=== PATIENT | male | born 1965 | race Caucasian/White ===

== ENCOUNTER → 2024-07-12 09:42 | Outpatient (BNVA) | payer MEDICARE, SELFPAY | DX: E03.9 Hypothyroidism, unspecified (principal); Z12.5 Encounter for screening for malignant neoplasm of prostate; R35.1 Nocturia; E11.9 Type 2 diabetes mellitus without complications | CPT/HCPCS: 80053; 80061; 83036; 84439; 84443; 84481; 85025; G0103 ==

== ENCOUNTER 2024-08-07 15:53 | Emergency (ER) | payer MEDICARE, SELFPAY ==
[2024-08-07 15:56] VITALS: BP 101/57; PULSE 73; RESP 17; TEMP 37.2; O2SAT 97; BMI 31.3
--- NOTE | 2024-08-07 16:04 | W.ED.GENADLT ---
Documented by User: LOI Hirsch 08/07/24 16:53 HPI - General Adult General: Chief complaint: Fall Stated complaint: Fall, Heat, Muscle spasms Time Seen by Provider: 08/07/24 15:55 Source: patient and EMS Mode of arrival: EMS Limitations: no limitations History of Present Illness: Patient is 58-year-old male presents to ED today via EMS for medical evaluation. Patient states he walked home from [facility] (currently resides at the [facility]) so this is a several mile walk and states when he got home he felt weak and fell to the ground and was not able to get himself up thus prompting the call to EMS. He denies lightheadedness, dizziness, passing out. Denies chest pain or shortness of breath. It is rather warm outside and patient is wearing triple layer black ski pants. Upon arrival, patient has no physical complaints other than he feels warm. He states he urinated when he got home and does not feel like it was dark. EMS states he was hypotensive when they arrived. Blood pressure at time of my examination is 101/57. Blood glucose is 65. Onset (ago): hour(s) Severity: mild Relieving factors: rest Exacerbating factors: other (heat) Associated symptoms: Reports no associated symptoms; Deny chest pain, confusion, dyspnea, headache(s), rash, palpitations or syncope Treatments prior to arrival: none Related Data Previous Rx's ?Medication ?Instructions ?Recorded atorvastatin 40 mg tablet (Lipitor) 40 mg PO DAILY #90 tabs 07/12/24 baclofen 20 mg tablet 20 mg PO TID #90 tabs 07/12/24 duloxetine 60 mg capsule,delayed 60 mg PO DAILY #90 caps 07/12/24 release gabapentin 300 mg capsule 300 mg PO TID #270 caps 07/12/24 levetiracetam 750 mg tablet 750 mg PO BID #180 tabs 07/12/24 levothyroxine 75 mcg capsule 75 mcg PO DAILY #90 caps 07/12/24 potassium chloride 10 mEq 10 meq PO DAILY #90 tabs 07/12/24 tablet,extended release(part/cryst) (Klor-Con M) topiramate 200 mg tablet 200 mg PO BID #180 tabs 07/12/24 Allergies Allergy/AdvReac Type Severity Reaction Status Date / Time aspirin Allergy Intermediate swelling Verified 07/12/24 08:51 ibuprofen Allergy Intermediate swelling Verified 07/12/24 08:51 ketorolac (From Toradol) Allergy Intermediate swelling Verified 07/12/24 08:51 Review of Systems Const: Reports: other (weakness-improving); Denies: fever(s), chills, body aches, change in appetite or fatigue Eyes: Denies: change in vision or blurry vision Card: Denies: chest pain, palpitations, edema, lightheadedness, syncope, pre-syncope or dyspnea on exertion Resp: Denies: dyspnea GI: Denies: abdominal pain : Denies: flank pain or dysuria Musc: Denies: neck pain, back pain, extremity pain or joint swelling Skin/Breast: Denies: rash Neuro: Denies: headache(s), numbness in extremities, weakness in extremities, sensory changes, lack of coordination, dizziness or confusion PFSH ED PFSH: Medical History Nocturia Chronic back pain Diabetic neuropathy Hypothyroidism Epilepsy Hyperlipidemia Type 2 diabetes mellitus Cataract Surgical History History of lobectomy of lung History of bilateral knee replacement S/P placement of nerve stimulator Family History Mother Diabetes Sister Cancer Diabetes Social History Smoking and tobacco/nicotine status: former use of tobacco/nicotine Alcohol intake: never Substance/Drug Use: never Household members: spouse Housing: Other Marital status: Number of children: 0 service: No Current occupational status: disabled Pets and animals: Yes Physical Exam Const: COMMON NORMALS: no acute distress, average body habitus, patient oriented x3, no limitations, healthy appearing, alert and well nourished GENERAL APPEARANCE: cooperative ORIENTATION/CONSCIOUSNESS: Yes awake, Yes oriented to person, Yes oriented to place and Yes oriented to time HENMT: COMMON NORMALS: normocephalic and atraumatic HEAD & SCALP: normal to inspection, normocephalic and atraumatic FACE & SINUS: normal facial exam and face symmetric Eye: GENERAL EYE: appearance normal, both eyes and all related structures and normal light reflex DIRECT OPHTHALMOSCOPY: Yes normal light reflex Resp: COMMON NORMALS: normal respiratory effort and clear to auscultation bilaterally AUSCULTATION: clear to auscultation bilaterally Cardio: COMMON NORMALS: regular rate and regular rhythm RATE: regular rate RHYTHM: regular rhythm GI: COMMON NORMALS: Normal to inspection, nondistended, normoactive bowel sounds present, Soft to palpation and non-tender PALPATION: Yes Soft to palpation Back/Pelvis: COMMON NORMALS: thoracic and lumbar spine normal to inspection Extremity: COMMON NORMALS: normal to inspection, capillary refill normal and no pedal edema GENERAL: Yes normal exam except as noted Neuro: LEANNA COMA SCALE: document GCS findings Leanna coma scale eye opening: Spontaneous Leanna coma scale verbal response: Orientated [place] coma scale motor response: Obey commands [place] coma scale total score: 15 COMMON NORMALS: patient oriented x3, moves all extremities, no focal motor deficits and no sensory deficits noted SENSORIUM/ORIENTATION: Yes alert, Yes oriented to person, Yes oriented to place and Yes oriented to time SPEECH: speech normal MOTOR EXAM: 5/5 motor strength present throughout Skin: COMMON NORMALS: no rashes or lesions noted GENERAL SKIN EXAM: no rashes or lesions noted Course Vital Signs: Vital signs: Vital Signs Temperature 99.0 F 08/07/24 15:56 Pulse Rate 61 08/07/24 18:30 Respiratory Rate 17 08/07/24 15:56 Blood Pressure 94/55 08/07/24 18:30 Pulse Oximetry 98 08/07/24 18:30 Oxygen Delivery Me thod Room Air 08/07/24 18:20 [facility] - General Adult Lab Data 08/07/24 16:19 08/07/24 17:09 Laboratory Results WBC 5.67 10^3/uL (3.29-11.43) 08/07/24 16:19 RBC 3.36 10^6/uL (3.85-5.65) L 08/07/24 16:19 Hgb 10.00 g/dL (11.27-16.99) L 08/07/24 16:19 Hct 31.6 % (37-53) L 08/07/24 16:19 MCV 94.0 fl (82-101) 08/07/24 16:19 MCH 29.8 pg (27-33) 08/07/24 16:19 MCHC 31.6 g/dL (30-55) 08/07/24 16:19 RDW 14.3 % (12.1-15.1) 08/07/24 16:19 Plt Count 183 10^3/cmm (157-399) 08/07/24 16:19 MPV 10.5 fL (7.4-10.4) H 08/07/24 16:19 Neut % (Auto) 71.7 % 08/07/24 16:19 Lymph % (Auto) 16.8 % 08/07/24 16:19 [place]rick % (Auto) 7.2 % 08/07/24 16:19 Eos % (Auto) 3.7 % 08/07/24 16:19 Baso % (Auto) 0.2 % 08/07/24 16:19 Neut # (Auto) 4.07 10^3/uL (1.8-7.7) 08/07/24 16:19 Lymph # (Auto) 1.0 10^3/uL (0.8-4.8) 08/07/24 16:19 Warrick # (Auto) 0.4 10^3/uL (0.2-0.9) 08/07/24 16:19 Eos # (Auto) 0.2 10^3/uL (0.0-0.8) 08/07/24 16:19 Baso # (Auto) 0.0 10^3/uL (0.0-0.1) 08/07/24 16:19 Nucleated RBC % (auto) 0 % 08/07/24 16:19 Nucleated RBCs # 0.0 /100WBC 08/07/24 16:19 Sodium 141 mmol/L (136-145) 08/07/24 17:09 Potassium 3.8 mmol/L (3.5-5.1) 08/07/24 17:09 Chloride 112 mmol/L (98-107) H 08/07/24 17:09 Carbon Dioxide 18 mmol/L (22-29) L 08/07/24 17:09 Anion Gap 14.8 (5-19) 08/07/24 17:09 BUN 16 mg/dL (6-20) 08/07/24 17:09 Creatinine 0.9 mg/dL (0.7-1.2) 08/07/24 17:09 GFR Calculation 87.0 mL/min (90-130) L 08/07/24 17:09 Glucose 87 mg/dL (65-115) 08/07/24 17:09 Calculated Osmolality 293 mOsm/kg (285-295) 08/07/24 17:09 Calcium 7.9 mg/dL (8.5-10.5) L 08/07/24 17:09 Magnesium 2.0 mg/dL (1.7-2.3) 08/07/24 17:09 Total Bilirubin 0.4 mg/dL (0.15-1.2) 08/07/24 17:09 AST 15 U/L (0-40) 08/07/24 17:09 ALT 10 U/L (0-41) 08/07/24 17:09 Alkaline Phosphatase 67 U/L (40-130) 08/07/24 17:09 Creatine Kinase 93 U/L (39-308) 08/07/24 17:09 Troponin T Baseline 17 ng/L (0-15) H 08/07/24 16:19 Troponin T 120 Minute 15.12 ng/L (0-15) H 08/07/24 18:14 Delta Troponin T -1.88 ABS# (0-10) L 08/07/24 18:14 Total Protein 5.1 g/dL (6.6-8.7) L 08/07/24 17:09 Albumin 3.5 g/dL (3.5-5.2) 08/07/24 17:09 Globulin 1.6 g/dL (1.3-4.6) 08/07/24 17:09 Urine Color Yellow (Yellow) 08/07/24 18:20 Urine Appearance Clear (CLEAR) 08/07/24 18:20 Urine pH 5.5 (5-7) 08/07/24 18:20 Ur Specific [place] 1.009 (1.005-1.030) 08/07/24 18:20 Urine Protein Negative (Negative) 08/07/24 18:20 Urine Glucose (UA) Negative (Normal) 08/07/24 18:20 Urine Ketones 1+ (Negative) H 08/07/24 18:20 Urine Blood Negative (Negative) 08/07/24 18:20 Urine Nitrate Negative (Negative) 08/07/24 18:20 Urine Bilirubin Negative (Negative) 08/07/24 18:20 Urine Urobilinogen 1.0 mg/dL (Negative) 08/07/24 18:20 Ur Leukocyte Esterase Negative (Negative) 08/07/24 18:20 Urine RBC 0-2 /hpf (0-2) 08/07/24 18:20 Urine WBC 0-5 /hpf (0-5) 08/07/24 18:20 Ur Squamous Epith Cells 0-5 /hpf (0-5) 08/07/24 18:20 Amorphous Sediment Not Reportable 08/07/24 18:20 Urine Bacteria None seen /hpf (NONE) 08/07/24 18:20 Hyaline Casts 0.40 /lpf 08/07/24 18:20 Discharge Plan Discharge Patient Disposition: Home Clinical Impression: Syncope, near Heat cramps Qualifiers: Encounter type: initial encounter Qualified Code(s): T67.2XXA - Heat cramp, initial encounter Condition: Stable Prescriptions: No Action baclofen 20 mg tablet 20 mg PO TID Qty: 90 2RF atorvastatin [Lipitor] 40 mg tablet 40 mg PO DAILY Qty: 90 0RF duloxetine 60 mg capsule,delayed release(DR/EC) 60 mg PO DAILY Qty: 90 0RF gabapentin 300 mg capsule 300 mg PO TID Qty: 270 0RF levetiracetam 750 mg tablet 750 mg PO BID Qty: 180 0RF levothyroxine 75 mcg capsule 75 mcg PO DAILY Qty: 90 0RF potassium chloride [Klor-Con M10] 10 mEq tablet,ER particles/crystals 10 meq PO DAILY Qty: 90 0RF topiramate 200 mg tablet 200 mg PO BID Qty: 180 0RF Discharge Orders: Discharge ED (Routine); Ordered 08/07/24 Ordered By: Marbin Conte Referrals: Yara Osei NP [Primary Care Provider, Family Practice] Patient Instructions: Heat Exhaustion (ED), Syncope (ED) Activity Restrictions/Additional Instructions: Try to increase your fluid intake and monitor your symptoms Avoid prolonged walking or activities while you are wearing thick clothing Follow-up with your doctor as soon as possible Return to the emergency department if any rapid worsening symptoms and as needed Print Language: Mohawk Coding Level of Care Code ED Wire Mesh Knitter for Chg Fwd Documented by User: DRAKE Conn 08/07/24 19:01 HPI - General Adult General: Chief complaint: Fall Stated complaint: Fall, Heat, Muscle spasms Time Seen by Provider: 08/07/24 15:55 Related Data Previous Rx's ?Medication ?Instructions ?Recorded atorvastatin 40 mg tablet (Lipitor) 40 mg PO DAILY #90 tabs 07/12/24 baclofen 20 mg tablet 20 mg PO TID #90 tabs 07/12/24 duloxetine 60 mg capsule,delayed 60 mg PO DAILY #90 caps 07/12/24 release gabapentin 300 mg capsule 300 mg PO TID #270 caps 07/12/24 levetiracetam 750 mg tablet 750 mg PO BID #180 tabs 07/12/24 levothyroxine 75 mcg capsule 75 mcg PO DAILY #90 caps 07/12/24 potassium chloride 10 mEq 10 meq PO DAILY #90 tabs 07/12/24 tablet,extended release(part/cryst) (Klor-Con M) topiramate 200 mg tablet 200 mg PO BID #180 tabs 07/12/24 Allergies Allergy/AdvReac Type Severity Reaction Status Date / Time aspirin Allergy Intermediate swelling Verified 07/12/24 08:51 ibuprofen Allergy Intermediate swelling Verified 07/12/24 08:51 ketorolac (From Toradol) Allergy Intermediate swelling Verified 07/12/24 08:51 PFSH ED PFSH: Medical History Nocturia Chronic back pain Diabetic neuropathy Hypothyroidism Epilepsy Hyperlipidemia Type 2 diabetes mellitus Cataract Surgical History History of lobectomy of lung History of bilateral knee replacement S/P placement of nerve stimulator Family History Mother Diabetes Sister Cancer Diabetes Social History Smoking and tobacco/nicotine status: former use of tobacco/nicotine Alcohol intake: never Substance/Drug Use: never Household members: spouse Housing: Other Marital status: Number of children: 0 service: No Current occupational status: disabled Pets and animals: Yes Physical Exam Neuro: LEANNA COMA SCALE: document GCS findings [place] coma scale total score: 15 Course ED course: Assumed care of patient From LOI Howadr at 1700 due to shift change. Vital Signs: Vital signs: Vital Signs Temperature 99.0 F 08/07/24 15:56 Pulse Rate 61 08/07/24 18:30 Respiratory Rate 17 08/07/24 15:56 Blood Pressure 94/55 08/07/24 18:30 Pulse Oximetry 98 08/07/24 18:30 Oxygen Delivery Me thod Room Air 08/07/24 18:20 MDM - General Adult Medical Decision Making Patient is 58-year-old male presents to ED today via EMS for medical evaluation. Patient states he walked home from [facility] (currently resides at the [facility]) so this is a several mile walk and states when he got home he felt weak and fell to the ground and was not able to get himself up thus prompting the call to EMS. He denies lightheadedness, dizziness, passing out. No leukocytosis, wbc 5.6. Hemoglobin is noted to be 10, slight decrease from previous of 11.4 on 07/12/2024. No significant electrolyte, renal, or hepatic abnormalities noted. Baseline troponin is 17 with a 2-hour troponin of 15.12. Patient was able to provide a UA after 2 L normal saline. UA with 1+ ketones, otherwise unremarkable. Patient did have fluctuating blood pressures while in the emergency department, but stated that he felt fine throughout. He was ambulatory within the room and able to provide a urine sample while standing with no difficulty. Discussed all findings with patient's. Patient still reported that he was feeling fine. He did state that the cramps in his legs have resolved after fluids. Encouraged patient to avoid walking across town in thick ski pants. Encouraged to increase his fluid intake and continue to monitor symptoms. Advised to follow-up with his doctor as soon as he is able. Return precautions provided. Patient states understanding and has no further questions or concerns at this time. Medical Records I reviewed the patient's medical records. Lab Data I reviewed the patient's lab results. 08/07/24 16:19 08/07/24 17:09 Laboratory Results WBC 5.67 10^3/uL (3.29-11.43) 08/07/24 16:19 RBC 3.36 10^6/uL (3.85-5.65) L 08/07/24 16:19 Hgb 10.00 g/dL (11.27-16.99) L 08/07/24 16:19 Hct 31.6 % (37-53) L 08/07/24 16:19 MCV 94.0 fl (82-101) 08/07/24 16:19 MCH 29.8 pg (27-33) 08/07/24 16:19 MCHC 31.6 g/dL (30-55) 08/07/24 16:19 RDW 14.3 % (12.1-15.1) 08/07/24 16:19 Plt Count 183 10^3/cmm (157-399) 08/07/24 16:19 MPV 10.5 fL (7.4-10.4) H 08/07/24 16:19 Neut % (Auto) 71.7 % 08/07/24 16:19 Lymph % (Auto) 16.8 % 08/07/24 16:19 Warrick % (Auto) 7.2 % 08/07/24 16:19 Eos % (Auto) 3.7 % 08/07/24 16:19 Baso % (Auto) 0.2 % 08/07/24 16:19 Neut # (Auto) 4.07 10^3/uL (1.8-7.7) 08/07/24 16:19 Lymph # (Auto) 1.0 10^3/uL (0.8-4.8) 08/07/24 16:19 Warrick # (Auto) 0.4 10^3/uL (0.2-0.9) 08/07/24 16:19 Eos # (Auto) 0.2 10^3/uL (0.0-0.8) 08/07/24 16:19 Baso # (Auto) 0.0 10^3/uL (0.0-0.1) 08/07/24 16:19 Nucleated RBC % (auto) 0 % 08/07/24 16:19 Nucleated RBCs # 0.0 /100WBC 08/07/24 16:19 Sodium 141 mmol/L (136-145) 08/07/24 17:09 Potassium 3.8 mmol/L (3.5-5.1) 08/07/24 17:09 Chloride 112 mmol/L (98-107) H 08/07/24 17:09 Carbon Dioxide 18 mmol/L (22-29) L 08/07/24 17:09 Anion Gap 14.8 (5-19) 08/07/24 17:09 BUN 16 mg/dL (6-20) 08/07/24 17:09 Creatinine 0.9 mg/dL (0.7-1.2) 08/07/24 17:09 GFR Calculation 87.0 mL/min (90-130) L 08/07/24 17:09 Glucose 87 mg/dL (65-115) 08/07/24 17:09 Calculated Osmolality 293 mOsm/kg (285-295) 08/07/24 17:09 Calcium 7.9 mg/dL (8.5-10.5) L 08/07/24 17:09 Magnesium 2.0 mg/dL (1.7-2.3) 08/07/24 17:09 Total Bilirubin 0.4 mg/dL (0.15-1.2) 08/07/24 17:09 AST 15 U/L (0-40) 08/07/24 17:09 ALT 10 U/L (0-41) 08/07/24 17:09 Alkaline Phosphatase 67 U/L (40-130) 08/07/24 17:09 Creatine Kinase 93 U/L (39-308) 08/07/24 17:09 Troponin T Baseline 17 ng/L (0-15) H 08/07/24 16:19 Troponin T 120 Minute 15.12 ng/L (0-15) H 08/07/24 18:14 Delta Troponin T -1.88 ABS# (0-10) L 08/07/24 18:14 Total Protein 5.1 g/dL (6.6-8.7) L 08/07/24 17:09 Albumin 3.5 g/dL (3.5-5.2) 08/07/24 17:09 Globulin 1.6 g/dL (1.3-4.6) 08/07/24 17:09 Urine Color Yellow (Yellow) 08/07/24 18:20 Urine Appearance Clear (CLEAR) 08/07/24 18:20 Urine pH 5.5 (5-7) 08/07/24 18:20 Ur Specific [place] 1.009 (1.005-1.030) 08/07/24 18:20 Urine Protein Negative (Negative) 08/07/24 18:20 Urine Glucose (UA) Negative (Normal) 08/07/24 18:20 Urine Ketones 1+ (Negative) H 08/07/24 18:20 Urine Blood Negative (Negative) 08/07/24 18:20 Urine Nitrate Negative (Negative) 08/07/24 18:20 Urine Bilirubin Negative (Negative) 08/07/24 18:20 Urine Urobilinogen 1.0 mg/dL (Negative) 08/07/24 18:20 Ur Leukocyte Esterase Negative (Negative) 08/07/24 18:20 Urine RBC 0-2 /hpf (0-2) 08/07/24 18:20 Urine WBC 0-5 /hpf (0-5) 08/07/24 18:20 Ur Squamous Epith Cells 0-5 /hpf (0-5) 08/07/24 18:20 Amorphous Sediment Not Reportable 08/07/24 18:20 Urine Bacteria None seen /hpf (NONE) 08/07/24 18:20 Hyaline Casts 0.40 /lpf 08/07/24 18:20 No radiology studies performed this visit Discharge Plan Discharge Patient Disposition: Home Clinical Impression: Syncope, near Heat cramps Qualifiers: Encounter type: initial encounter Qualified Code(s): T67.2XXA - Heat cramp, initial encounter Condition: Stable Prescriptions: No Action baclofen 20 mg tablet 20 mg PO TID Qty: 90 2RF atorvastatin [Lipitor] 40 mg tablet 40 mg PO DAILY Qty: 90 0RF duloxetine 60 mg capsule,delayed release(DR/EC) 60 mg PO DAILY Qty: 90 0RF gabapentin 300 mg capsule 300 mg PO TID Qty: 270 0RF levetiracetam 750 mg tablet 750 mg PO BID Qty: 180 0RF levothyroxine 75 mcg capsule 75 mcg PO DAILY Qty: 90 0RF potassium chloride [Klor-Con M10] 10 mEq tablet,ER particles/crystals 10 meq PO DAILY Qty: 90 0RF topiramate 200 mg tablet 200 mg PO BID Qty: 180 0RF Discharge Orders: Discharge ED (Routine); Ordered 08/07/24 Ordered By: Marbin Conte Referrals: Yara Osei NP [Primary Care Provider, Family Practice] Patient Instructions: Heat Exhaustion (ED), Syncope (ED) Activity Restrictions/Additional Instructions: Try to increase your fluid intake and monitor your symptoms Avoid prolonged walking or activities while you are wearing thick clothing Follow-up with your doctor as soon as possible Return to the emergency department if any rapid worsening symptoms and as needed Print Language: Mohawk Coding Level of Care Code ED Wire Mesh Knitter for Madyson Chen
[2024-08-07] MEDS: sodium chloride 0.9% 1,000 ML 999 ML IV ×2 (16:20→17:24)
[2024-08-07 16:30] LABS: Basophils % 0.2 %; Eosinophils # 0.2 10^3/uL (0.0-0.8); Eosinophils % 3.7 %; Hematocrit 31.6 % (37-53); Lymphocytes % 16.8 %; Mean Corpuscular HGB Conc 31.6 g/dL (30-55); Mean Corpuscular Hemoglobin 29.8 pg (27-33); Mean Platelet Volume 10.5 fL (7.4-10.4); Monocytes # 0.4 10^3/uL (0.2-0.9); Monocytes % 7.2 %; Neutrophils # 4.07 10^3/uL (1.8-7.7); Neutrophils % 71.7 %; Nucleated Red Blood Cells % 0 %; Platelet Count 183 10^3/cmm (157-399); Red Blood Count 3.36 10^6/uL (3.85-5.65); Red Cell Distribution Width 14.3 % (12.1-15.1); White Blood Count 5.67 10^3/uL (3.29-11.43)
[2024-08-07 16:53] LABS: Troponin(5th) Baseline 17 ng/L (0-15)
[2024-08-07 17:09] VITALS: BP 88/46; PULSE 66; O2SAT 98
[2024-08-07 17:30] VITALS: BP 86/47; PULSE 60; O2SAT 100
[2024-08-07 17:41] LABS: Alanine Aminotransferase 10 U/L (0-41); Albumin Level 3.5 g/dL (3.5-5.2); Alkaline Phosphatase 67 U/L (40-130); Anion Gap 14.8 (5-19); Aspartate Amino Transferase 15 U/L (0-40); Blood Urea Nitrogen 16 mg/dL (6-20); Calcium 7.9 mg/dL (8.5-10.5); Carbon Dioxide 18 mmol/L (22-29); Chloride 112 mmol/L (98-107); Creatine Phosphokinase 93 U/L (39-308); Globulin 1.6 g/dL (1.3-4.6); Glucose 87 mg/dL (65-115); Osmolality Calculated 293 mOsm/kg (285-295); Potassium 3.8 mmol/L (3.5-5.1); Sodium 141 mmol/L (136-145); Total Bilirubin 0.4 mg/dL (0.15-1.2); Total Protein 5.1 g/dL (6.6-8.7)
--- NOTE | 2024-08-07 18:00 | PC.NURSE ---
Dg SAMPLER AND TEST PREPARER notified of pt low bp.
--- NOTE | 2024-08-07 18:04 | ECG_ITS ---
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 Measurements Intervals [place] Rate: 60 P: 53 CO: 165 QRS: 6 QRSD: 104 T: 20 QT: 435 QTc: 436 Interpretive Statements SINUS RHYTHM No previous ECG available for comparison Electronically Signed On 08-08-2024 22:17:29 CDT by Kierra Corbett M.D. [id number]
[2024-08-07 18:20] VITALS: BP 91/48; PULSE 58; O2SAT 99
[2024-08-07 18:30] VITALS: BP 94/55; PULSE 61; O2SAT 98
[2024-08-07 18:36] LABS: Bilirubin Urine Negative (Negative); Blood Urine Negative (Negative); Glucose Urine UA Negative (Normal); Ketones Urine 1+ (Negative); Leukocyte Esterase Urine Negative (Negative); Nitrate Urine Negative (Negative); Protein Urine Negative (Negative); Specific Gravity, Urine 1.009 (1.005-1.030); Urine Appearance Clear (CLEAR); Urine Color Yellow (Yellow); pH Urine 5.5 (5-7)
[2024-08-07 18:39] LABS: Troponin 5 2HR 15.12 ng/L (0-15)
[2024-08-07 18:41] LABS: Add Urine Microscopic? YES; Bacteria Urine None Seen /hpf; RBC Urine 0-2 /hpf (0-2); Squamous Epithelial Cell Urine 0-5 /hpf (0-5); WBC Urine 0-5 /hpf (0-5)
[2024-08-07 18:42] LABS: Troponin 5 2HR Delta -1.88 ABS# (0-10)
[2024-08-07 18:45] LABS: Add Urine Culture? No
[2024-08-07 19:16] VITALS: BP 94/59; PULSE 59; O2SAT 96
== END 2024-08-07 19:17 | disposition home or self-care (01) ==
PROVIDERS: Emergency Provider Physician Assistant
DX: R55 Syncope and collapse (principal); T67.2XXA Heat cramp, initial encounter; Z87.891 Personal history of nicotine dependence; E11.9 Type 2 diabetes mellitus without complications; E78.5 Hyperlipidemia, unspecified; X58.XXXA Exposure to other specified factors, initial encounter
CPT/HCPCS: 36415; 80053; 81001; 82550; 83735; 84484; 85025; 93005; 96360; 96361; 99284; J7030

== ENCOUNTER 2024-08-11 12:42 | Emergency (ER) | payer MEDICARE, SELFPAY ==
[2024-08-11 12:45] VITALS: BP 89/47; PULSE 59; RESP 18; TEMP 36.7; O2SAT 99
--- NOTE | 2024-08-11 12:54 | ED_ITS ---
HPI - Extremity Problem 2 General: Chief complaint: Extremity Problem,Nontraumatic Stated complaint: hand spasms/ right shoulder pain Time Seen by Provider: 08/11/24 12:46 History of Present Illness: 58-year-old man with a history of right lower lobe lobectomy status post lung cancer, chronic hypoxemic respiratory failure with 3 L oxygen at night, chronic pain syndrome on baclofen duloxetine and gabapentin, seizure disorder, diet- controlled diabetes who recently moved here from [place]. He presents to the emergency room by ambulance with right shoulder and elbow pain for the last 2 months and cramping in his hands. His blood pressure is a little soft when he gets here but looking back at has been in the past. He is a bit of a poor historian. Unclear if anything changed today but it sounds like maybe the pain got worse. Related Data Previous Rx's ?Medication ?Instructions ?Recorded atorvastatin 40 mg tablet (Lipitor) 40 mg PO DAILY #90 tabs 07/12/24 baclofen 20 mg tablet 20 mg PO TID #90 tabs duloxetine 60 mg capsule,delayed 60 mg PO DAILY #90 ca ps 07/12/24 release gabapentin 300 mg capsule 300 mg PO TID #270 caps 06/28 07/22 levetiracetam 750 mg tablet 750 mg PO BID #180 tabs levothyroxine 75 mcg capsule 75 mcg PO DAILY #90 caps 07/12/24 potassium chloride 10 mEq 10 meq PO DAILY #90 tabs tablet,extended release(part/cryst) (Klor-Con M) topiramate 200 mg tablet 200 mg PO BID #180 tabs 06/28 07/22 tramadol 50 mg tablet 50 mg PO Q8H PRN pain #20 ta bs 08/11/24 Allergies Allergy/AdvReac Type Severity Reaction Status Date / Time aspirin Allergy Intermediate swelling Verified 07/12/24 08:51 ibuprofen Allergy Intermediate swelling Verified 07/12/24 08:51 ketorolac (From Toradol) Allergy Intermediate swelling Verified 07/12/24 08:51 Review of Systems 2 Narrative: Constitutional symptoms: Negative except as documented in HPI. Skin symptoms: Negative except as documented in HPI. Eye symptoms: Negative except as documented in HPI. ENMT symptoms: Negative except as documented in HPI. Respiratory symptoms: Negative except as documented in HPI. Cardiovascular symptoms: Negative except as documented in HPI. Gastrointestinal symptoms: Negative except as documented in HPI. Genitourinary symptoms: Negative except as documented in HPI. Musculoskeletal symptoms: Negative except as documented in HPI. Neurologic symptoms: Negative except as documented in HPI. Psychiatric symptoms: Negative except as documented in HPI. Endocrine symptoms: Negative except as documented in HPI. PFSH ED 2 PFSH: Medical History Nocturia Chronic back pain Diabetic neuropathy Hypothyroidism Epilepsy Hyperlipidemia Type 2 diabetes mellitus Cataract Surgical History History of lobectomy of lung History of bilateral knee replacement S/P placement of nerve stimulator Family History Mother Diabetes Sister Cancer Diabetes Social History Smoking and tobacco/nicotine status: former use of tobacco/nicotine Alcohol intake: never Substance/Drug Use: never Household members: spouse Housing: Other Marital status: Number of children: 0 service: No Current occupational status: disabled Pets and animals: Yes Physical Exam 2 Narrative: EXAM NARRATIVE: General: Alert, no acute distress. Skin: Warm, dry. Head: Normocephalic, atraumatic. Neck: Supple, trachea midline. Eye: Extraocular movements are intact. Ears, nose, mouth and throat: mucosa moist. Cardiovascular: Regular, Normal peripheral perfusion. Respiratory: Lungs are clear to auscultation, respirations are non-labored, breath sounds are equal, Symmetrical chest wall expansion. Gastrointestinal: Soft, Nontender, Non distended Musculoskeletal: Normal ROM, no deformity. Neurological: Alert and oriented, No focal neurological deficit observed. Psychiatric: Cooperative, appropriate mood & affect. Course 2 Vital Signs: Vital signs: Vital Signs Temperature 98.1 F 08/11/24 12:45 Pulse Rate 59 L 08/11/24 12:45 Respiratory Rate 18 08/11/24 12:45 Blood Pressure 89/47 08/11/24 12:45 Pulse Oximetry 99 08/11/24 12:45 Oxygen Delivery Me thod Room Air 08/11/24 12:45 MDM - Extremity (Nontraumatic) Medical Decision Making Medical decision making: Differential diagnosis including but not limited to and based on the above HPI, review of systems and physical exam: In this patient with low blood pressure and hand cramps checking for renal failure electrolyte abnormalities. Orders placed to evaluate differential diagnosis based on the above differential, HPI and physical exam Lab Review: Laboratory results were reviewed and interpreted by myself the emergency room physician. No leukocytosis. No anemia. No renal failure. Sodium is a bit elevated and his urine is a bit concentrated which might indicate some dehydration so fluids were given. I reviewed the patient's medical record. Reexamination: Patient remained stable. No increased work of breathing. No altered mental status. No focal motor deficits. Assessment and plan: Shoulder and elbow pain Dehydration ?IV fluids and p.o. tramadol. - Discharged home - Discussed findings and plan with patient. Answered any questions. - All laboratory values were reviewed and interpreted personally by myself, the ER physician - All imaging was reviewed and interpreted personally by myself, the ER physician. - Evaluation and treatment of this problem were appropriate in the emergency setting Lab Data 08/11/24 12:30 08/11/24 12:30 Laboratory Results WBC 7.45 10^3/uL (3.29-11.43) 08/11/24 12:30 RBC 3.58 10^6/uL (3.85-5.65) L 08/11/24 12:30 Hgb 10.50 g/dL (11.27-16.99) L 08/11/24 12:30 Hct 33.8 % (37-53) L 08/11/24 12:30 MCV 94.4 fl (82-101) 08/11/24 12:30 MCH 29.3 pg (27-33) 08/11/24 12:30 MCHC 31.1 g/dL (30-55) 08/11/24 12:30 RDW 14.6 % (12.1-15.1) 08/11/24 12:30 Plt Count 207 10^3/cmm (157-399) 08/11/24 12:30 MPV 10.7 fL (7.4-10.4) H 08/11/24 12:30 Neut % (Auto) 79.4 % 08/11/24 12:30 Lymph % (Auto) 12.1 % 08/11/24 12:30 [place] % (Auto) 4.8 % 08/11/24 12:30 Eos % (Auto) 3.1 % 08/11/24 12:30 Baso % (Auto) 0.3 % 08/11/24 12:30 Neut # (Auto) 5.92 10^3/uL (1.8-7.7) 08/11/24 12:30 Lymph # (Auto) 0.9 10^3/uL (0.8-4.8) 08/11/24 12:30 [place] # (Auto) 0.4 10^3/uL (0.2-0.9) 08/11/24 12:30 Eos # (Auto) 0.2 10^3/uL (0.0-0.8) 08/11/24 12:30 Baso # (Auto) 0.0 10^3/uL (0.0-0.1) 08/11/24 12:30 Nucleated RBC % (auto) 0 % 08/11/24 12: Nucleated RBCs # 0.0 /100WBC 08/11/24 12:30 Sodium 146 mmol/L (136-145) H 08/11/24 12:30 Potassium 3.2 mmol/L (3.5-5.1) L 08/11/24 12:30 Chloride 114 mmol/L (98-107) H 08/11/24 12:30 Carbon Dioxide 22 mmol/L (22-29) 08/11/24 12:30 Anion Gap 13.2 (5-19) 08/11/24 12:30 BUN 8 mg/dL (6-20) 08/11/24 12:30 Creatinine 0.9 mg/dL (0.7-1.2) 08/11/24 12:30 GFR Calculation 87.0 mL/min (90-130) L 08/11/24 12:30 Glucose 145 mg/dL (65-115) H 08/11/24 12:30 Calculated Osmolality 303 mOsm/kg (285-295) H 08/11/24 12:30 Lactic Acid 1.6 mmol/L (0.5-2.2) 08/11/24 12:30 Calcium 8.5 mg/dL (8.5-10.5) 08/11/24 12:30 Magnesium 2.2 mg/dL (1.7-2.3) 08/11/24 12:30 Total Bilirubin 0.4 mg/dL (0.15-1.2) 08/11/24 12:30 AST 17 U/L (0-40) 08/11/24 12:30 ALT 16 U/L (0-41) 08/11/24 12:30 Alkaline Phosphatase 84 U/L (40-130) 08/11/24 12:30 Total Protein 5.8 g/dL (6.6-8.7) L 08/11/24 12:30 Albumin 3.7 g/dL (3.5-5.2) 08/11/24 12:30 Globulin 2.1 g/dL (1.3-4.6) 08/11/24 12:30 Urine Color Dark yellow (Yellow) A 08/11/24 14: Urine Appearance Clear (CLEAR) 08/11/24 14: Urine pH 6.5 (5-7) 08/11/24 14:30 Ur Specific [place] 1.023 (1.005-1.030) 08/11/24 14: Urine Protein Trace (Negative) A 08/11/24 14:30 Urine Glucose (UA) Negative (Normal) 08/11/24 14:30 Urine Ketones Trace (Negative) 08/11/24 14:30 Urine Blood Negative (Negative) 08/11/24 14: Urine Nitrate Negative (Negative) 08/11/24 14:30 Urine Bilirubin Negative (Negative) 08/11/24 14: Urine Urobilinogen 1.0 mg/dL (Negative) 08/11/24 14:30 Ur Leukocyte Esterase Negative (Negative) 08/11/24 14:30 Urine RBC 0-2 /hpf (0-2) 08/11/24 14:30 Urine WBC 0-5 /hpf (0-5) 08/11/24 14:30 Ur Squamous Epith Cells 0-5 /hpf (0-5) 08/11/24 14: Amorphous Sediment Not Reportable 08/11/24 14: Urine Bacteria None seen /hpf (NONE) 08/11/24 14:30 Hyaline Casts 2.46 /lpf 08/11/24 14:30 No radiology studies performed this visit Discharge Plan Discharge Patient Disposition: Home Clinical Impression: Arm pain, Dehydration Condition: Stable Prescriptions: New tramadol 50 mg tablet 50 mg PO Q8H PRN (Reason: pain) Qty: 20 0RF No Action baclofen 20 mg tablet 20 mg PO TID Qty: 90 2RF atorvastatin [Lipitor] 40 mg tablet 40 mg PO DAILY Qty: 90 0RF duloxetine 60 mg capsule,delayed release(DR/EC) 60 mg PO DAILY Qty: 90 0RF gabapentin 300 mg capsule 300 mg PO TID Qty: 270 0RF levetiracetam 750 mg tablet 750 mg PO BID Qty: 180 0RF levothyroxine 75 mcg capsule 75 mcg PO DAILY Qty: 90 0RF potassium chloride [Klor-Con M10] 10 mEq tablet,ER particles/crystals 10 meq PO DAILY Qty: 90 0RF topiramate 200 mg tablet 200 mg PO BID Qty: 180 0RF Discharge Orders: Discharge ED (Routine); Ordered 08/11/24 Ordered By: Charo Steven Referrals: Yara Osei, CLINICAL LABORATORY MANAGER [Primary Care Provider, Family Practice] Discharge Diet: Usual diet Discharge Activity: Increase activity as tolerated Patient Instructions: Opioid Safety, Pain Management Activity Restrictions/Additional Instructions: Thank you for choosing [facility] for your healthcare needs today. You have been screened and evaluated and felt safe for discharge. Health conditions do change or evolve sometimes and as such it is important that you follow up with your Primary Doctor to be re checked, 3-5 days is a general good time frame for follow up. You are always welcome to return to the ED for re assessment if your symptoms are worsening or you have new concerns Print Language: Vietnamese Coding Level of Care Code ED Maintenance Director for Madyson Chen
[2024-08-11 12:59] LABS: Basophils % 0.3 %; Eosinophils # 0.2 10^3/uL (0.0-0.8); Eosinophils % 3.1 %; Hematocrit 33.8 % (37-53); Lymphocytes # 0.9 10^3/uL (0.8-4.8); Lymphocytes % 12.1 %; Mean Corpuscular HGB Conc 31.1 g/dL (30-55); Mean Corpuscular Hemoglobin 29.3 pg (27-33); Mean Corpuscular Volume 94.4 fl (82-101); Mean Platelet Volume 10.7 fL (7.4-10.4); Monocytes # 0.4 10^3/uL (0.2-0.9); Monocytes % 4.8 %; Neutrophils # 5.92 10^3/uL (1.8-7.7); Neutrophils % 79.4 %; Nucleated Red Blood Cells % 0 %; Platelet Count 207 10^3/cmm (157-399); Red Blood Count 3.58 10^6/uL (3.85-5.65); Red Cell Distribution Width 14.6 % (12.1-15.1); White Blood Count 7.45 10^3/uL (3.29-11.43)
[2024-08-11 13:16] LABS: Lactic Sepsis W/Reflex 1.6 mmol/L (0.5-2.2)
[2024-08-11] MEDS: sodium chloride 0.9% 1,000 ML 999 ML IV (13:20)
[2024-08-11 13:23] LABS: Alanine Aminotransferase 16 U/L (0-41); Albumin Level 3.7 g/dL (3.5-5.2); Alkaline Phosphatase 84 U/L (40-130); Anion Gap 13.2 (5-19); Aspartate Amino Transferase 17 U/L (0-40); Blood Urea Nitrogen 8 mg/dL (6-20); Calcium 8.5 mg/dL (8.5-10.5); Carbon Dioxide 22 mmol/L (22-29); Chloride 114 mmol/L (98-107); Globulin 2.1 g/dL (1.3-4.6); Glucose 145 mg/dL (65-115); Magnesium 2.2 mg/dL (1.7-2.3); Osmolality Calculated 303 mOsm/kg (285-295); Potassium 3.2 mmol/L (3.5-5.1); Sodium 146 mmol/L (136-145); Total Bilirubin 0.4 mg/dL (0.15-1.2); Total Protein 5.8 g/dL (6.6-8.7)
[2024-08-11 14:38] LABS: Bilirubin Urine Negative (Negative); Blood Urine Negative (Negative); Glucose Urine UA Negative (Normal); Ketones Urine Trace (Negative); Leukocyte Esterase Urine Negative (Negative); Nitrate Urine Negative (Negative); Protein Urine Trace (Negative); Specific Gravity, Urine 1.023 (1.005-1.030); Urine Appearance Clear (CLEAR); Urine Color Dark Yellow (Yellow); pH Urine 6.5 (5-7)
[2024-08-11 14:41] LABS: Bacteria Urine None Seen /hpf; Hyaline Casts Urine 2.46 /lpf; RBC Urine 0-2 /hpf (0-2); Squamous Epithelial Cell Urine 0-5 /hpf (0-5); WBC Urine 0-5 /hpf (0-5)
[2024-08-11] MEDS: TRAMadol 50 mg Tablet PO (15:26)
[2024-08-11 15:27] VITALS: BP 92/59; PULSE 45; O2SAT 98
== END 2024-08-11 15:30 | disposition home or self-care (01) ==
PROVIDERS: Emergency Provider Emergency Medicine
DX: M79.601 Pain in right arm (principal); E86.0 Dehydration; Z87.891 Personal history of nicotine dependence; E11.40 Type 2 diabetes mellitus with diabetic neuropathy, unspecified; E78.5 Hyperlipidemia, unspecified
CPT/HCPCS: 80053; 81001; 83605; 83735; 85025; 96360; 96361; 99284; J7030; J9999

== ENCOUNTER → 2024-08-15 14:32 | Outpatient (BNVA) | payer MEDICARE, SELFPAY | DX: E86.0 Dehydration (principal) | CPT/HCPCS: 80053; 85025 ==

== ENCOUNTER 2024-08-18 13:21 | Emergency (ER) | payer MEDICARE, SELFPAY ==
--- NOTE | 2024-08-18 13:41 | XRR_ITS ---
PROCEDURE INFORMATION: Exam: XR Right Shoulder Exam date and time: 08/18/2024 2:55 PM Age: 58 years old Clinical indication: Right; RT wrist/shoulder pain post fall TECHNIQUE: Imaging protocol: Radiologic exam of the right shoulder. Views: 2 or more views. COMPARISON: No relevant prior studies available. FINDINGS: Bones/joints: No fractures or dislocations. Humeral head is somewhat high-riding which may be seen with rotator cuff tear. Soft tissues: Normal. XR/XR shoulder RT min 2V* [id number] IMPRESSION: No acute findings.
[2024-08-18 13:49] VITALS: BP 102/65; PULSE 56; RESP 17; TEMP 36.7; O2SAT 98; BMI 28.1
--- NOTE | 2024-08-18 14:19 | W.ED.EXTPRO ---
HPI - Extremity Problem General: Chief complaint: Extremity Injury, Upper Stated complaint: rt shoulder inj Time Seen by Provider: 08/18/24 13:30 History of Present Illness: 59-year-old male complaining of right shoulder pain following his right shoulder and hurt his right shoulder and elbow yesterday. Patient still is unable to use the right arm but is uncomfortable Associated symptoms: Deny chest pain, fever(s) or rash Related Data Previous Rx's ?Medication ?Instructions ?Recorded atorvastatin 40 mg tablet (Lipitor) 40 mg PO DAILY #90 tabs 07/12/24 baclofen 20 mg tablet 20 mg PO TID #90 tabs 07/12/24 duloxetine 60 mg capsule,delayed 60 mg PO DAILY #90 caps 07/12/24 release gabapentin 300 mg capsule 300 mg PO TID #270 caps 07/12/24 levetiracetam 750 mg tablet 750 mg PO BID #180 tabs 07/12/24 levothyroxine 75 mcg capsule 75 mcg PO DAILY #90 caps 07/12/24 potassium chloride 10 mEq 10 meq PO DAILY #90 tabs 07/12/24 tablet,extended release(part/cryst) (Klor-Con M) topiramate 200 mg tablet 200 mg PO BID #180 tabs 07/12/24 tramadol 50 mg tablet 50 mg PO Q8H PRN pain #20 tabs 08/11/24 Fixed height hospitlal bed #1 ea 08/21/24 Allergies Allergy/AdvReac Type Severity Reaction Status Date / Time aspirin Allergy Intermediate swelling Verified 08/15/24 13:49 ibuprofen Allergy Intermediate swelling Verified 08/15/24 13:49 ketorolac (From Toradol) Allergy Intermediate swelling Verified 08/15/24 13:49 Review of Systems Const: Denies: fever(s) or chills Card: Denies: chest pain Resp: Denies: dyspnea GI: Denies: abdominal pain : Denies: dysuria, urinary frequency or urinary urgency Musc: Denies: neck pain or back pain Skin/Breast: Denies: rash PFSH ED PFSH: Medical History Nocturia Chronic back pain Diabetic neuropathy Hypothyroidism Epilepsy Hyperlipidemia Type 2 diabetes mellitus Cataract Surgical History History of lobectomy of lung History of bilateral knee replacement S/P placement of nerve stimulator Family History Mother Diabetes Sister Cancer Diabetes Social History Smoking and tobacco/nicotine status: former use of tobacco/nicotine Alcohol intake: never Substance/Drug Use: never Household members: spouse Housing: Other Marital status: Number of children: 0 service: No Current occupational status: disabled Pets and animals: Yes Physical Exam Const: COMMON NORMALS: no acute distress GENERAL APPEARANCE: cooperative and comfortable ORIENTATION/CONSCIOUSNESS: Yes awake, Yes oriented to person, Yes oriented to place and Yes oriented to time HENMT: COMMON NORMALS: normocephalic, atraumatic and hearing grossly normal bilaterally HEAD & SCALP: normocephalic and atraumatic Resp: COMMON NORMALS: normal respiratory effort, No retractions, No use of accessory muscles and clear to auscultation bilaterally AUSCULTATION: clear to auscultation bilaterally Cardio: COMMON NORMALS: regular rate, regular rhythm and No murmurs present (Cardio) RATE: regular rate RHYTHM: regular rhythm GI: COMMON NORMALS: Soft to palpation and No hepatosplenomegaly present AUSCULTATION: Yes normoactive bowel sounds PALPATION: Yes Soft to palpation, No Tenderness to palpation present (GI), No Guarding due to palpation present (GI) and Yes No hepatosplenomegaly present Extremity: COMMON NORMALS: normal to inspection, capillary refill normal, no clubbing, cyanosis or edema, no calf tenderness and no pedal edema OTHER: Semination the right arm or shoulder no deformities patient has range of motion at the wrist good action finisher strength 5/5 range of motion at the elbow with flexion extension and pronation and supination examination of the shoulder patient able to go through full range of motion including internal/external rotation while in abduction without significant pain. Neuro: SENSORIUM/ORIENTATION: Yes oriented to person, Yes oriented to place and Yes oriented to time Skin: COMMON NORMALS: no rashes or lesions noted GENERAL SKIN EXAM: no rashes or lesions noted Course Vital Signs: Vital signs: Vital Signs Temperature 98.0 F 08/18/24 13:49 Pulse Rate 52 L 08/18/24 15:23 Respiratory Rate 16 08/18/24 15:23 Blood Pressure 109/66 08/18/24 15:23 Pulse Oximetry 100 08/18/24 15:23 Oxygen Delivery Me thod Room Air 08/18/24 13:49 MDM - Extremity (Nontraumatic) Medical Decision Making No acute findings on imaging. Will discharge patient home can use anti-inflammatories follow-up with primary care if has persistent pain may need advanced imaging. Lab Data Radiology Impressions Shoulder X-Ray 08/18/24 13:41 IMPRESSION: No acute findings. Elbow X-Ray 08/18/24 14:20 IMPRESSION: No acute findings. All radiology interpretation(s) finalized by discharge Discharge Plan Discharge Patient Disposition: Home Clinical Impression: Fall, Arm pain, left Condition: Stable Prescriptions: No Action baclofen 20 mg tablet 20 mg PO TID Qty: 90 2RF atorvastatin [Lipitor] 40 mg tablet 40 mg PO DAILY Qty: 90 0RF duloxetine 60 mg capsule,delayed release(DR/EC) 60 mg PO DAILY Qty: 90 0RF gabapentin 300 mg capsule 300 mg PO TID Qty: 270 0RF levetiracetam 750 mg tablet 750 mg PO BID Qty: 180 0RF levothyroxine 75 mcg capsule 75 mcg PO DAILY Qty: 90 0RF potassium chloride [Klor-Con M10] 10 mEq tablet,ER particles/crystals 10 meq PO DAILY Qty: 90 0RF topiramate 200 mg tablet 200 mg PO BID Qty: 180 0RF (DME) Fixed height hospitlal bed See Rx Instructions .Route .MEDSUPPLY Qty: 1 0RF Rx Instructions: As directed tramadol 50 mg tablet 50 mg PO Q8H PRN (Reason: pain) Qty: 20 0RF Discharge Orders: Discharge ED (Routine); Ordered 08/18/24 Ordered By: Armin Schwarz Referrals: Yara Osei NP [Primary Care Provider, Family Practice] Discharge Diet: Usual diet Discharge Activity: Increase activity as tolerated Patient Instructions: Opioid Safety, Pain Management Activity Restrictions/Additional Instructions: Thank you for choosing [facility] for your healthcare needs today. It is very important that you follow up as instructed or that you return to the Emergency Department should you have concerns or if your condition changes or worsens in any way. You were seen in the emergency room after a fall. X-rays did not show any acute fractures you will likely be very sore over the next few days. Follow-up with your primary care doctor as needed Print Language: Belizean Coding Level of Care Code ED Research Chemical Engineer for Madyson Chen
[2024-08-18 14:20] VITALS: BP 93/55; PULSE 54; RESP 16; O2SAT 100
--- NOTE | 2024-08-18 14:20 | XRR_ITS ---
PROCEDURE INFORMATION: Exam: XR Right Elbow Exam date and time: 08/18/2024 2:58 PM Age: 58 years old Clinical indication: Elbow; Right; RT wrist/shoulder pain post fall TECHNIQUE: Imaging protocol: Radiologic exam of the right elbow. Views: 3 or more views. COMPARISON: CR (CHEST, ) 08/18/2024 2:55 PM FINDINGS: Bones/joints: No fractures or dislocations. Olecranon bone spurring or enthesopathy. Soft tissues: Normal. XR/XR elbow RT min 3V* [id number] IMPRESSION: No acute findings.
[2024-08-18 15:23] VITALS: BP 109/66; PULSE 52; RESP 16; O2SAT 100
== END 2024-08-18 15:28 | disposition home or self-care (01) ==
PROVIDERS: Emergency Provider Family Medicine
DX: M25.511 Pain in right shoulder (principal); M79.602 Pain in left arm; Z87.891 Personal history of nicotine dependence; E78.5 Hyperlipidemia, unspecified; E11.40 Type 2 diabetes mellitus with diabetic neuropathy, unspecified
CPT/HCPCS: 73030; 73080; 99283

== ENCOUNTER 2024-08-26 14:47 | Emergency (ER) | payer MEDICARE, SELFPAY ==
--- OUTSIDE RECORDS SUMMARY | 2024-05-04 08:10 | XMS_ITS | Continuity of Care Document ---
Author Organization [facility] ter and Eye Surgery Address [address] [address] Phone Care Team Providers Care Labor Relations Officer Name Role Phone Peng Judy ALICIA Unavailable [...] Diagnoses Date Provider EST PT EM 3 [facility] [place] [facility], [address] [place] [address], CARIE Cheng, [id number], tel:[phone] [facility] Yag capsulotomy laser FU (chief complaint)Ret inal Detachment (chief complaint) Presence of pseudophakiaCombined forms of age-related cataract, right eyeOther retinal detachment Danish Kim. [address] [place] [address], CARIE Cheng, [id number], . tel:[phone] [facility] [place] [facility], [address] [place] [address], CARIE Cheng, [id number], tel:[phone] [facility] cataract evaluation (chief complaint) Combined forms of age-related cataract, right eyeDry eye syndrome of bilateral lacrimal glandsOther secondary cataract, left eyePresence of pseudophakiaOther retinal detachment Danish Kim. [address] [place] [address], CARIE Cheng, [id number], . tel:[phone] [facility] [place] [facility], [address] [place] [address], CARIE Cheng, [id number], tel:[phone] [facility] Post-op Exam Danish Kim. [address] [place] [address], CARIE Cheng, [id number], . tel:[phone] [facility] [place] [facility], [address] [place] [address], CARIE Cheng, [id number], tel:[phone] [facility] No Information Erik Osman. [address] [place] [address], CARIE Cheng, [id number], . tel:[phone] [facility] [place] [facility], [address] [place] [address], CARIE Cheng, [id number], tel:[phone] [facility] [place] [facility] No Information Erik Osman. [address] [place] [address], CARIE Cheng, [id number], [place]. tel:[phone] [facility] [place] [facility], [address] [place] [address], CARIE Cheng, [id number], tel:[phone] [facility] decreased vision (chief complaint) Age-related nuclear cataract, bilateral Erik Osman. [address] [place] [address], CARIE Cheng, [id number], . tel:[phone] Family History Family Member Type Diagnosis Age At Onset Mother Problem (finding) cataract Payers Payer name Insurance type Covered alliance party ID Helio hill(s) [facility] Dual Complete Medicare [id number] [facility] [id number] Social History Type Description Quantity Date Captured [...] Combined forms of age-related cataract, right eye Nov- Impression/Plan - St art AT QID and warm compresses. Related to Dry eye syndrome of bilateral lacrimal glands Impression/Plan Related to Post- op Exam case coordinator to contact patient to schedule procedure. Related to Age-related nuclear cataract, bilateral Follow up - case coordinator to contact patient to schedule procedure. Related to Age-related nuclear cataract, bilateral Impression/Plan - Ok ay for phaco/IOL OS. TARGET -5.00 OS.Addendum: Unable to get records from Dr. Elliott. Records older than 7 years and they have been purged. Related to Age-related nuclear cataract, bilateral Assessments [...]
[2024-08-26 14:48] VITALS: BP 90/54; PULSE 53; RESP 18; TEMP 36.7; O2SAT 99
--- NOTE | 2024-08-26 14:51 | XRR_ITS ---
PROCEDURE INFORMATION: Exam: XR Right Shoulder Exam date and time: 08/26/2024 2:54 PM Age: 59 years old Clinical indication: Right shoulder pain; No known injury TECHNIQUE: Imaging protocol: Radiologic exam of the right shoulder. Views: 2 or more views. COMPARISON: CR (CHEST, ) 08/18/2024 2:55 PM FINDINGS: Bones/joints: Normal. Soft tissues: Normal. XR/XR shoulder RT min 2V* [id number] IMPRESSION: No acute findings. No significant change.
--- NOTE | 2024-08-26 14:52 | ED_ITS ---
HPI - Fall General: Chief Complaint: Extremity Injury, Upper Stated Complaint: right shoulder pain s/p fall Time Seen by Provider: 08/26/24 14:48 Source: patient Mode of arrival: ambulatory Limitations: no limitations History of Present Illness: 59-year-old male who states that he had a fall just 20 minutes ago. States he landed on his right shoulder when he fell on his right shoulder pain he rates a 5 out of 10. He denies any other injuries denies any his head denies any neck pain. Associated symptoms-after fall: Denies abdominal pain, chest pain, headache(s) or neck pain Related Data Previous Rx's ?Medication ?Instructions ?Recorded atorvastatin 40 mg tablet (Lipitor) 40 mg PO DAILY #90 tabs 07/12/24 baclofen 20 mg tablet 20 mg PO TID #90 tabs duloxetine 60 mg capsule,delayed 60 mg PO DAILY #90 ca ps 07/12/24 release gabapentin 300 mg capsule 300 mg PO TID #270 caps 06/28 07/22 levetiracetam 750 mg tablet 750 mg PO BID #180 tabs levothyroxine 75 mcg capsule 75 mcg PO DAILY #90 caps 07/12/24 potassium chloride 10 mEq 10 meq PO DAILY #90 tabs tablet,extended release(part/cryst) (Klor-Con M) topiramate 200 mg tablet 200 mg PO BID #180 tabs 06/28 07/22 tramadol 50 mg tablet 50 mg PO Q8H PRN pain #20 ta bs 08/11/24 Fixed height hospitlal bed #1 ea 08/21/24 Allergies Allergy/AdvReac Type Severity Reaction Status Date / Time aspirin Allergy Intermediate swelling Verified 08/15/24 13:49 ibuprofen Allergy Intermediate swelling Verified 08/15/24 13:49 ketorolac (From Toradol) Allergy Intermediate swelling Verified 08/15/24 13:49 Review of Systems Const: Denies: fever(s), chills, body aches or change in appetite ENMT: Denies: throat pain or dental pain Card: Denies: chest pain Resp: Denies: dyspnea GI: Denies: abdominal pain, nausea, vomiting or diarrhea Musc: Reports: extremity pain; Denies: neck pain or back pain Skin/Breast: Denies: rash Neuro: Denies: headache(s) [facility] ED PFSH: Medical History Nocturia Chronic back pain Diabetic neuropathy Hypothyroidism Epilepsy Hyperlipidemia Type 2 diabetes mellitus Cataract Surgical History History of lobectomy of lung History of bilateral knee replacement S/P placement of nerve stimulator Family History Mother Diabetes Sister Cancer Diabetes Social History Smoking and tobacco/nicotine status: former use of tobacco/nicotine Alcohol intake: never Substance/Drug Use: never Household members: spouse Housing: Other Marital status: Number of children: 0 service: No Current occupational status: disabled Pets and animals: Yes Physical Exam Const: COMMON NORMALS: no acute distress, patient oriented x3 and healthy appearing HENMT: COMMON NORMALS: normocephalic and atraumatic HEAD & SCALP: no rmocephalic and atraumatic Neck/C-Spine: COMMON NORMALS: full ROM and supple CERVICAL SPINE: Yes cervical ROM normal and No Cervical spine tenderness Chest: COMMONS NORMALS: normal inspection of the chest Resp: COMMON NORMALS: normal respiratory effort Cardio: COMMON NORMALS: regular rate RATE: regular rate Extremity: COMMON NORMALS: normal to inspection and full ROM Neuro: COMMON NORMALS: patient oriented x3, moves all extremities and no focal motor deficits Psych: COMMON NORMALS: mental status grossly normal, Normal thought process present and cooperative THOUGHT PROCESS: Normal thought process present Skin: COMMON NORMALS: no rashes or lesions noted and no wounds GENERAL SKIN EXAM: no rashes or lesions noted Course Vital Signs: Vital signs: Vital Signs Temperature 98.1 F 08/26/24 14:48 Pulse Rate 59 L 08/26/24 15:11 Respiratory Rate 16 08/26/24 15:10 Blood Pressure 98/57 08/26/24 15:11 Pulse Oximetry 96 08/26/24 15:11 Oxygen Delivery Me thod Room Air 08/26/24 15:10 MDM - Fall Medical Decision Making Patient presents here with right shoulder pain after a fall likely contusion x- ray shows no fractures he stable for discharge follow-up PCP return if worsening. Medical Records I reviewed the patient's medical records. XR interpretation done by ED provider, pending radiology final review ED provider radiology interpretation(s): xr r shoulder no acutee abnormality Discharge Plan Discharge Patient Disposition: Home Clinical Impression: Contusion of right shoulder, Fall Condition: Stable Prescriptions: No Action baclofen 20 mg tablet 20 mg PO TID Qty: 90 2RF atorvastatin [Lipitor] 40 mg tablet 40 mg PO DAILY Qty: 90 0RF duloxetine 60 mg capsule,delayed release(DR/EC) 60 mg PO DAILY Qty: 90 0RF gabapentin 300 mg capsule 300 mg PO TID Qty: 270 0RF levetiracetam 750 mg tablet 750 mg PO BID Qty: 180 0RF levothyroxine 75 mcg capsule 75 mcg PO DAILY Qty: 90 0RF potassium chloride [Klor-Con M10] 10 mEq tablet,ER particles/crystals 10 meq PO DAILY Qty: 90 0RF topiramate 200 mg tablet 200 mg PO BID Qty: 180 0RF (DME) Fixed height hospitlal bed See Rx Instructions .Route .MEDSUPPLY Qty: 1 0RF Rx Instructions: As directed tramadol 50 mg tablet 50 mg PO Q8H PRN (Reason: pain) Qty: 20 0RF Discharge Orders: Discharge ED (Routine); Ordered 08/26/24 Ordered By: Nancie Brooke Referrals: Yara Osei NP [Primary Care Provider, Family Practice] - 4-7 days Discharge Diet: Advance as tolerated Discharge Activity: Resume usual activity Patient Instructions: Contusion in Adults (ED) Print Language: Filipino Coding Level of Care Code ED Casing Machine Operator for Madyson Chen
--- OUTSIDE RECORDS SUMMARY | 2024-08-26 14:56 | XMS_ITS | Encounter Summary ---
Author Organization [facility] Address [address] [place] [address] Care Team Providers Care Pricing Clerk Name Role Phone Russell Gloria MD Primary Care Provider [phone] Encounter Details Date Type Department Care Team (Late st Contact Info) Description 08/21/2024 External Device Data [place] ABSTRACTION Provider, Abstract NO ADDRESS ON FILE Social History Tobacco Use Types Packs/Day Years Used Date Smoking Tobacco: Former Cigarettes Q uit: 1999 Alcohol Use Standard Drinks/Week Comments Not Currently 0 (1 standard drink = 0.6 oz pur e alcohol) Feeling Safe Answer Date Recorded Are you in a relationship wi th someone who hurts you emotionally and/or physically? 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
--- OUTSIDE RECORDS SUMMARY | 2024-08-26 14:56 | XMS_ITS | Encounter Summary ---
Author Organization [facility] Address 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
--- OUTSIDE RECORDS SUMMARY | 2024-08-26 14:56 | XMS_ITS | Clinical Summary ---
Author Organization [facility] Address [address] [facility] Attn: [place] [address] Care Team Providers Care Automatic Print Developer Name Role Phone Russell Gloria MD Primary Care Provider [phone] Allergies Active Allergy Reactions Criticality Noted Date Comments Aspirin Angioedema High 11/13/2008 Ibuprofen Angioedema High 06/28/2024 Ketorolac Tromethamine Angioedema High 11/13/2008 Medications DULoxetine (CYMBALTA) 60 mg Capsule, Delayed Release(E.C.) Take 60 mg by mouth 2 times daily. Active MULTIVITAMIN WITH IRON ORAL Take by mouth daily. Active pantoprazole (PROTONIX) 20 mg Tablet, Delayed Release (E.C.) Take 20 mg by mouth daily. Active baclofen (LIORESAL) 20 mg tablet Take 10 mg by mouth 2 times daily. Active gabapentin (NEURONTIN) 300 mg capsule Take 300 mg by mouth daily. Active traMADol (ULTRAM) 50 mg tablet Take 50 mg by mouth 2 times daily. Active hydroxychloroqu ine (PLAQUENIL) 200 mg tablet Take 200 mg by mouth daily. Active gabapentin (NEURONTIN) 100 mg capsule Take 100 mg by mouth daily. Active albuterol sulfate HFA 90 mcg/actuation aerosol inhaler Take 2 Puffs by inhalation every 6 hours as needed for Shortness of Breath. Active atorvastatin (LIPITOR) 40 mg tablet Take 40 mg by mouth daily. Active potassium CHLORIDE (KLOR-CON M10) 10 mEq Extended Release tablet Take 10 mEq by mouth daily. Active sucralfate (CARAFATE) 1 gram tablet Take 1 Gram by mouth every 12 hours. Active topiramate (TOPAMAX) 200 mg tablet Take 200 mg by mouth 2 times daily. Active metoclopramide HCl (REGLAN) 10 mg tablet Take 10 mg by mouth 2 times daily. 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 Spinal enthesopathy 02/27/2009 Encounters Date Type Department Care Team Description 08/21/2024 External Device Data ST[facility] ABSTRACTION Provider, Abstract 08/21/2024 External Device Data [facility] ABSTRACTION Provider, Abstract 08/21/2024 External Device Data [facility] ABSTRACTION Provider, Abstract 07/24/2024 External Device Data [facility] ABSTRACTION Provider, Abstract 07/24/2024 External Device Data [facility] ABSTRACTION Provider, Abstract 07/24/2024 External Device Data [facility] ABSTRACTION Provider, Abstract 07/03/2024 External Device Data [facility] ABSTRACTION Provider, Abstract 07/03/2024 External Device Data [facility] ABSTRACTION Provider, Abstract 07/03/2024 External Device Data [facility] ABSTRACTION Provider, Abstract 06/28/2024 6:42 PM CDT - 06/28/2024 9:20 PM CDT Emergency [facility] Emergency Medicine [address] [place] [address] Rufino Rossi MD Sprain of right shoulder, unspecified shoulder sprain type, initial encounter (Primary Dx) Discharge Disposition: Home or Self Care 06/28/2024 Travel from Last 3 Months Immunizations Immunization Administration Dates Next Due (TDVAX)(7 YRS UP) TETANUS AN D DIPHTHERIA TOXOIDS, ADSORBED (2 LF OF TETANUS TOXOID AND 2 LF OF DIPHTHERIA TOXOID), 0.5ML (PF), IM 05/09/2007 Family History Medical History Relation Name Comments Colon Cancer Neg Hx Social History Tobacco Use Types Packs/Day Years Used Date Smoking Tobacco: Former Cigarettes Q uit: 1999 Tobacco Cessation:Counseling Given: Not Answered Alcohol Use Standard Drinks/Week Comments Not Currently 0 (1 standard drink = 0.6 oz pur e alcohol) Feeling Safe Answer Date Recorded Are you in a relationship wi th someone who hurts you emotionally and/or physically? 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 Gender Identity Not on file Sexual Orientation Not on file Last Filed Vital Signs Vital Sign Reading Time Taken Comments Blood Pressure 122/94 06/28/2024 8:48 PM CDT Pulse 56 06/28/2024 8:48 PM CDT Temperature 36.2 C (97.2 F) 06/28/2024 6:47 PM CDT Respiratory Rate 16 06/28/2024 8:48 PM CDT Oxygen Saturation 99% 06/28/2024 8:48 PM CDT Inhaled Oxygen Concentration - - Weight 76.2 kg (168 lb) 06/28/2024 6:47 PM CDT Height 170.2 cm (5' 7 ) 06/28/2024 6:47 PM CDT Body Mass Index 26.31 06/28/2024 6:47 PM CDT Plan of Treatment Health Maintenance Due Date Last Done Comments Pre-Diabetes and Diabetes Screening 1965 HEPATITIS B VACCINES (1 of 3 - 19+ 3-dose series) 07/30 ZOSTER VACCINE (1 of 2) 1985 DTAP/TDAP/TD VACCINES (1 - Tdap) 05/10/2007 05/09/19 08 COLORECTAL SCREENING 08/21/2011 Colorectal Cancer Screening 08/21/2011 FIT-DNA Q 3 years 08/21/2011 FIT/FOBT Q 1 year 08/21/2011 Flex Sig/CT Colonography Q 5 years 08/21/2011 INFLUENZA VACCINE (#1) 2023 Procedures Procedure Name Priority Date/Time Associated Diagnosis Comments XR ELBOW 3+ VW RIGHT Stat 06/28/2024 8:05 PM CDT XR CLAVICLE RIGHT Stat 06/28/2024 8:0 4 PM CDT XR SHOULDER 2+ VW RIGHT Stat 06/28/2024 8:04 PM CDT from Last 3 Months Results * XR ELBOW 3+ VW RIGHT (06/28/2024 8:05 PM CDT) Anatomical Region Laterality Modality Upper Extremity Computed Radiogr aphy 06/28/2024 8:05 PM CDT Impressions 06/28/2024 8:28 PM CDT IMPRESSION: Please see below. Exam: XR ELBOW 3+ VW RIGHT Date/Time of Exam: 06/28/2024 8:05 PM Reason For Exam: Injury. Diagnosis: See Reason for Exam. Findings: There are no comparisons. No soft tissue swelling is noted. The fat pads are not elevated. No fractures are identified. There is no dislocation. No periosteal reaction is noted. No lytic, blastic or destructive lesion is noted. There is minimal osteoarthritic change. No radiopaque foreign body is noted. IMPRESSION: No significant radiographic abnormality. Narrative Procedure Note Lashae Campbell MD - 06/28/2024 IMPRESSION: Please see below. Exam: XR ELBOW 3+ VW RIGHT Date/Time of Exam: 06/28/2024 8:05 PM Reason For Exam: Injury. Diagnosis: See Reason for Exam. Findings: There are no comparisons. No soft tissue swelling is noted. The fat pads are not elevated. No fractures are identified. There is no dislocation. No periosteal reaction is noted. No lytic, blastic or destructive lesion is noted. There is minimal osteoarthritic change. No radiopaque foreign body is noted. IMPRESSION: No significant radiographic abnormality. Rufino Rossi MD DIAGNOSTIC IMAGING OR DERABLES Final Result * XR CLAVICLE RIGHT (06/28/2024 8:04 PM CDT) Anatomical Region Laterality Modality Upper Extremity Computed Radiogr aphy 06/28/2024 8:04 PM CDT Impressions 06/28/2024 8:27 PM CDT IMPRESSION: Please see below. Exam: XR CLAVICLE RIGHT Date/Time of Exam: 06/28/2024 8:04 PM Reason For Exam: Fall. Diagnosis: See Reason for Exam. Findings: There are no comparisons. No fractures are noted. No subluxation or dislocation is appreciated. No periosteal reaction is noted. No lytic, blastic or destructive lesion is noted. No arthritic change is present. No radiopaque foreign body is noted. IMPRESSION: No significant radiographic abnormality. Narrative Procedure Note Lashae Campbell MD - 06/28/2024 IMPRESSION: Please see below. Exam: XR CLAVICLE RIGHT Date/Time of Exam: 06/28/2024 8:04 PM Reason For Exam: Fall. Diagnosis: See Reason for Exam. Findings: There are no comparisons. No fractures are noted. No subluxation or dislocation is appreciated. No periosteal reaction is noted. No lytic, blastic or destructive lesion is noted. No arthritic change is present. No radiopaque foreign body is noted. IMPRESSION: No significant radiographic abnormality. us Rufino Rossi MD DIAGNOSTIC IMAGING OR DERABLES Final Result * XR SHOULDER 2+ VW RIGHT (06/28/2024 8:04 PM CDT) Anatomical Region Laterality Modality Upper Extremity Computed Radiogr aphy 06/28/2024 8:04 PM CDT Impressions 06/28/2024 8:26 PM CDT IMPRESSION: Please see below. Exam: XR SHOULDER 2+ VW RIGHT Date/Time of Exam: 06/28/2024 8:04 PM Reason For Exam: Trauma. Diagnosis: See Reason for Exam. Findings: There are no comparisons. There is no fracture or dislocation. No periosteal reaction is noted. No lytic, blastic or destructive lesion is noted. No significant arthritic change is appreciated. No radiopaque foreign body is noted. The visualized lungs are grossly unremarkable. IMPRESSION: No significant radiographic abnormality. Narrative Procedure Note Lashae Campbell MD - 06/28/2024 IMPRESSION: Please see below. Exam: XR SHOULDER 2+ VW RIGHT Date/Time of Exam: 06/28/2024 8:04 PM Reason For Exam: Trauma. Diagnosis: See Reason for Exam. Findings: There are no comparisons. There is no fracture or dislocation. No periosteal reaction is noted. No lytic, blastic or destructive lesion is noted. No significant arthritic change is appreciated. No radiopaque foreign body is noted. The visualized lungs are grossly unremarkable. IMPRESSION: No significant radiographic abnormality. us Rufino Rossi MD DIAGNOSTIC IMAGING OR DERABLES Final Result from Last 3 Months Insurance [employer] HMO MCR Care Teams Automatic Print Developer Relationship Specialty Start Date End Date Russell Gloria MD [address] [address] PCP - General 11/13/08
--- OUTSIDE RECORDS SUMMARY | 2024-08-26 14:56 | XMS_ITS | Encounter Summary ---
Author Organization [facility] Address 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
[2024-08-26 15:10] VITALS: BP 90/64; PULSE 60; RESP 16; O2SAT 96
[2024-08-26 15:11] VITALS: BP 98/57; PULSE 59; O2SAT 96
== END 2024-08-26 15:12 | disposition home or self-care (01) ==
PROVIDERS: Emergency Provider Emergency Medicine
DX: S40.011A Contusion of right shoulder, initial encounter (principal); W19.XXXA Unspecified fall, initial encounter; Z87.891 Personal history of nicotine dependence; E11.40 Type 2 diabetes mellitus with diabetic neuropathy, unspecified; E78.5 Hyperlipidemia, unspecified
CPT/HCPCS: 73030; 99283

== ENCOUNTER 2024-08-30 15:01 | Emergency (ER) | payer MEDICARE, SELFPAY ==
--- OUTSIDE RECORDS SUMMARY | 2024-05-04 08:10 | XMS_ITS | Continuity of Care Document ---
Author Organization [facility] ter and Eye Surgery Address [address] [address] Phone Care Team Providers Care Straight Line Press Setter Name Role Phone Peng Judy ALICIA Unavailable [...] Diagnoses Date Provider EST PT EM 3 [facility] [place] [facility], [address] [place] [address], CARIE Cheng, [id number], tel:[phone] [facility] Yag capsulotomy laser FU (chief complaint)Ret inal Detachment (chief complaint) Presence of pseudophakiaCombined forms of age-related cataract, right eyeOther retinal detachment Danish Kim. [address] [place] [address], CARIE Cheng, [id number], . tel:[phone] [facility] [place] [facility], [address] [place] [address], CARIE Cheng, [id number], tel:[phone] [facility] cataract evaluation (chief complaint) Combined forms of age-related cataract, right eyeDry eye syndrome of bilateral lacrimal glandsOther secondary cataract, left eyePresence of pseudophakiaOther retinal detachment Danish Kim. [address] [place] [address], CARIE Cheng, [id number], . tel:[phone] [facility] [place] [facility], [address] [place] [address], CARIE Cheng, [id number], tel:[phone] [facility] Post-op Exam Danish Kim. [address] [place] [address], CARIE Cheng, [id number], . tel:[phone] [facility] [place] [facility], [address] [place] [address], CARIE Cheng, [id number], tel:[phone] [facility] No Information Erik Osman. [address] [place] [address], CARIE Cheng, [id number], . tel:[phone] [facility] [place] [facility], [address] [place] [address], CARIE Cheng, [id number], tel:[phone] [facility] No Information Erik Osman. [address] [place] [address], CARIE Cheng, [id number], [place]. tel:[phone] [facility] [place] [facility], [address] [place] [address], CARIE Cheng, [id number], tel:[phone] [facility] decreased vision (chief complaint) Age-related nuclear cataract, bilateral Erik Osman. [address] [place] [address], CARIE Cheng, [id number], . tel:[phone] Family History Family Member Type Diagnosis Age At Onset Mother Problem (finding) cataract Payers Payer name Insurance type Covered libertarian ID Helio hill(s) [facility] Dual Complete Medicare [id number] [facility] [id number] Social History Type Description Quantity Date Captured [...] glands Impression/Plan Related to Post- op Exam diabetes education coordinator to contact patient to schedule procedure. Related to Age-related nuclear cataract, bilateral Follow up - diabetes education coordinator to contact patient to schedule procedure. [...]
[2024-08-30 15:03] VITALS: BP 107/66; PULSE 72; RESP 16; TEMP 36.5; O2SAT 95; BMI 28.1
--- OUTSIDE RECORDS SUMMARY | 2024-08-30 15:04 | XMS_ITS | Clinical Summary ---
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
--- NOTE | 2024-08-30 15:36 | CTR_ITS ---
PROCEDURE INFORMATION: Exam: CT Head Without Contrast Exam date and time: 08/30/2024 4:06 PM Age: 59 years old Clinical indication: Injury or trauma; Fall; Blunt trauma (contusions or hematomas); Without loss of consciousness TECHNIQUE: Imaging protocol: Computed tomography of the head without contrast. Radiation optimization: All CT scans at this facility use at least one of these dose optimization techniques: automated exposure control; mA and/or kV adjustment per patient size (includes targeted exams where dose is matched to clinical indication); or iterative reconstruction. COMPARISON: None RADIATION DOSE METRICS: Total DLP (mGy-cm): 1476.3 FINDINGS: Brain: Mild nonspecific white matter low attenuation which may be related to microvascular ischemic changes. 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 No acute confluent lobar ischemic infarct. No acute intracranial hemorrhage. Cerebral ventricles: The ventricles and sulci are prominent in size compatible with mild atrophy. Paranasal sinuses: No fluid levels. Mastoid air cells: Visualized mastoid air cells are well aerated. Orbital cavities: Left globe scleral band. Bones: No acute calvarial fracture. Soft tissues: Visualized soft tissues are unremarkable. CT/CT head wo con* [id number] IMPRESSION: No acute intracranial abnormality. If symptoms persist, consider further evaluation with MRI, if there are no contraindications to obtaining a MRI scan.
--- NOTE | 2024-08-30 15:36 | CTR_ITS ---
PROCEDURE INFORMATION: Exam: CT Cervical Spine Without Contrast Exam date and time: 08/30/2024 4:06 PM Age: 59 years old Clinical indication: Injury or trauma; Fall; Blunt trauma TECHNIQUE: Imaging protocol: Computed tomography of the cervical spine without contrast. Radiation optimization: All CT scans at this facility use at least one of these dose optimization techniques: automated exposure control; mA and/or kV adjustment per patient size (includes targeted exams where dose is matched to clinical indication); or iterative reconstruction. COMPARISON: None RADIATION DOSE METRICS: Total DLP (mGy-cm): 212.2 FINDINGS: Bones/joints: The cervical vertebral body heights are maintained. Normal alignment. C2-C3: No significant disc bulge or herniation. No severe spinal canal stenosis. No significant neuroforaminal narrowing. C3-C4: Broad-based disc osteophyte complex with mild central canal stenosis. Mild bilateral neuroforaminal narrowing secondary to uncovertebral and facet hypertrophy. C4-C5: The spinal canal is patent. Mild bilateral neuroforaminal narrowing secondary to uncovertebral and facet hypertrophy. C5-C6: The spinal canal is patent. Mild bilateral neuroforaminal narrowing secondary to uncovertebral and facet hypertrophy. C6-C7: No significant disc bulge or herniation. No severe spinal canal stenosis. No significant neuroforaminal narrowing. C7-T1: No significant disc bulge or herniation. No severe spinal canal stenosis. No significant neuroforaminal narrowing. Lungs: Lung apices are normal. Soft tissues: Visualized soft tissues are unremarkable. CT/CT cervical spin wo con* [id number] IMPRESSION: No acute bony abnormality. If symptoms persist, consider further evaluation with MRI, if there are no contraindications to obtaining a MRI scan.
--- NOTE | 2024-08-30 16:46 | W.ED.FALL ---
HPI - Fall General: Chief Complaint: Fall Stated Complaint: fell and hit head Time Seen by Provider: 08/30/24 15:09 History of Present Illness: 59-year-old male patient presents to the emergency department complaining of a fall tripping over a curb. Patient did not have any loss of consciousness. Patient has an abrasion to the forehead. Patient denies any visual disturbances. Patient denies any current dizziness or lightheadedness. Patient is not anticoagulated. Patient denies any other complaints patient does not have any cervical spine tenderness Related Data Previous Rx's ?Medication ?Instructions ?Recorded atorvastatin 40 mg tablet (Lipitor) 40 mg PO DAILY #90 tabs 07/12/24 baclofen 20 mg tablet 20 mg PO TID #90 tabs 07/12/24 duloxetine 60 mg capsule,delayed 60 mg PO DAILY #90 caps 07/12/24 release gabapentin 300 mg capsule 300 mg PO TID #270 caps 07/12/24 levetiracetam 750 mg tablet 750 mg PO BID #180 tabs 07/12/24 levothyroxine 75 mcg capsule 75 mcg PO DAILY #90 caps 07/12/24 potassium chloride 10 mEq 10 meq PO DAILY #90 tabs 07/12/24 tablet,extended release(part/cryst) (Klor-Con M) topiramate 200 mg tablet 200 mg PO BID #180 tabs 07/12/24 tramadol 50 mg tablet 50 mg PO Q8H PRN pain #20 tabs 08/11/24 Fixed height hospitlal bed #1 ea 08/21/24 Allergies Allergy/AdvReac Type Severity Reaction Status Date / Time aspirin Allergy Intermediate swelling Verified 08/30/24 15:09 ibuprofen Allergy Intermediate swelling Verified 08/30/24 15:09 ketorolac (From Toradol) Allergy Intermediate swelling Verified 08/30/24 15:09 Review of Systems General: Reports: 10 or more systems reviewed and unremarkable except in HPI and below PFSH ED PFSH: Medical History Nocturia Chronic back pain Diabetic neuropathy Hypothyroidism Epilepsy Hyperlipidemia Type 2 diabetes mellitus Cataract Surgical History History of lobectomy of lung History of bilateral knee replacement S/P placement of nerve stimulator Family History Mother Diabetes Sister Cancer Diabetes Social History Smoking and tobacco/nicotine status: former use of tobacco/nicotine Alcohol intake: never Substance/Drug Use: never Household members: spouse Housing: Other Marital status: Number of children: 0 service: No Current occupational status: disabled Pets and animals: Yes Physical Exam Const: COMMON NORMALS: no acute distress, average body habitus, patient oriented x3, no limitations and alert HENMT: COMMON NORMALS: normocephalic, atraumatic (Contusion noted to forehead), external ears normal and TM's normal bilaterally HEAD & SCALP: normocephalic and atraumatic (Contusion noted to forehead) EXTERNAL EAR: Yes external ears normal TYMPANIC MEMBRANE: TM's normal bilaterally Eye: COMMON NORMALS: Equal, round and reactive pupils present, EOMs intact bilaterally and conjunctivae normal CONJUNCTIVA: Yes conjunctivae normal PUPIL: Yes Equal, round and reactive pupils present Neck/C-Spine: COMMON NORMALS: full ROM, no lymphadenopathy, supple and no meningeal signs Chest: COMMONS NORMALS: normal inspection of the chest and normal palpation of entire chest wall Resp: COMMON NORMALS: normal respiratory effort, No retractions and clear to auscultation bilaterally AUSCULTATION: clear to auscultation bilaterally Cardio: COMMON NORMALS: regular rate and regular rhythm RATE: regular rate RHYTHM: regular rhythm GI: COMMON NORMALS: Normal to inspection, nondistended, normoactive bowel sounds present, Soft to palpation and non-tender PALPATION: Yes Soft to palpation : COMMON NORMALS: Yes no CVA tenderness BLADDER/KIDNEY EXAM: Yes no CVA tenderness Back/Pelvis: COMMON NORMALS: no CVA tenderness, thoracic and lumbar spine normal to inspection, no thoracic nor lumbar tenderness and thoraco-lumbar ROM normal Extremity: GENERAL: Yes normal exam except as noted Neuro: COMMON NORMALS: patient oriented x3, CN's II-XII intact bilaterally, moves all extremities and no focal motor deficits SENSORIUM/ORIENTATION: Yes alert MENINGEAL SIGNS: Yes no meningeal signs Psych: COMMON NORMALS: mental status grossly normal, Normal thought process present and cooperative THOUGHT PROCESS: Normal thought process present Skin: GENERAL SKIN EXAM: other (Contusion to forehead) Course Vital Signs: Vital signs: Vital Signs Temperature 97.7 F 08/30/24 15:03 Pulse Rate 52 L 08/30/24 17:39 Respiratory Rate 16 08/30/24 15:03 Blood Pressure 124/80 08/30/24 17:39 Pulse Oximetry 99 08/30/24 17:39 Oxygen Delivery Me thod Room Air 08/30/24 15:03 MDM - Fall Medical Decision Making Patient is well-appearing nontoxic and in no acute distress. Patient states that she has a IUD in place for the past 10 years and saw a string and trying to pull on it and started having vaginal bleeding after that. Patient denies any abdominal pain or back pain. Patient denies any fever. Patient denies any chest pain or shortness of breath. Patient denies any urinary symptoms CT head and CT cervical spine are negative for any acute findings. Patient patient denies any shortness of breath or chest pain. Patient denies any headache visual disturbances lightheadedness or dizziness. Wound was cleaned and dressed I did discuss with patient return precautions home care and follow-up at this point I do not feel any further emergent testing is warranted patient is medically cleared and appropriate for discharge. Lab Data Radiology Impressions Cervical Spine CT 08/30/24 15:36 IMPRESSION: No acute bony abnormality. If symptoms persist, consider further evaluation with MRI, if there are no contraindications to obtaining a MRI scan. Head CT 08/30/24 15:36 IMPRESSION: No acute intracranial abnormality. If symptoms persist, consider further evaluation with MRI, if there are no contraindications to obtaining a MRI scan. All radiology interpretation(s) finalized by discharge Discharge Plan Discharge Patient Disposition: Home Clinical Impression: Contusion Qualifiers: Encounter type: initial encounter Contusion area: head Contusion of head detail: unspecified part of head Qualified Code(s): S00.93XA - Contusion of unspecified part of head, initial encounter Condition: Stable Prescriptions: No Action baclofen 20 mg tablet 20 mg PO TID Qty: 90 2RF atorvastatin [Lipitor] 40 mg tablet 40 mg PO DAILY Qty: 90 0RF duloxetine 60 mg capsule,delayed release(DR/EC) 60 mg PO DAILY Qty: 90 0RF gabapentin 300 mg capsule 300 mg PO TID Qty: 270 0RF levetiracetam 750 mg tablet 750 mg PO BID Qty: 180 0RF levothyroxine 75 mcg capsule 75 mcg PO DAILY Qty: 90 0RF potassium chloride [Klor-Con M10] 10 mEq tablet,ER particles/crystals 10 meq PO DAILY Qty: 90 0RF topiramate 200 mg tablet 200 mg PO BID Qty: 180 0RF (DME) Fixed height hospitlal bed See Rx Instructions .Route .MEDSUPPLY Qty: 1 0RF Rx Instructions: As directed tramadol 50 mg tablet 50 mg PO Q8H PRN (Reason: pain) Qty: 20 0RF Discharge Orders: Discharge ED (Routine); Ordered 08/30/24 Ordered By: Meme Scott Referrals: Yara Osei NP [Primary Care Provider, Family Practice] Discharge Diet: Advance as tolerated Discharge Activity: Resume usual activity Patient Instructions: Contusion, Opioid Safety, Pain Management, Patient Portal & Avani Instructions Activity Restrictions/Additional Instructions: Follow up with PCP Return to ER with any concerns or worsening of symptoms Print Language: Icelandic Coding Level of Care Code ED Feltmaker And Weigher for Madyson Chen
[2024-08-30 17:39] VITALS: BP 124/80; PULSE 52; O2SAT 99
== END 2024-08-30 17:40 | disposition home or self-care (01) ==
PROVIDERS: Emergency Provider Registered Nurse
DX: S00.93XA Contusion of unspecified part of head, initial encounter (principal); Z87.891 Personal history of nicotine dependence; E78.5 Hyperlipidemia, unspecified; E11.40 Type 2 diabetes mellitus with diabetic neuropathy, unspecified; W01.0XXA Fall on same level from slipping, tripping and stumbling without subsequent striking against object, initial encounter
CPT/HCPCS: 70450; 72125; 99284

== ENCOUNTER 2024-09-02 14:14 | Emergency (ER) | payer MEDICARE, SELFPAY ==
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
--- OUTSIDE RECORDS SUMMARY | 2024-09-02 14:19 | XMS_ITS | Clinical Summary ---
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
[2024-09-02 14:31] VITALS: BP 102/63; PULSE 70; RESP 18; TEMP 36.7; O2SAT 98; BMI 28.1
--- NOTE | 2024-09-02 15:15 | CTR_ITS ---
PROCEDURE INFORMATION: Exam: CT Head Without Contrast Exam date and time: 09/02/2024 3:23 PM Age: 59 years old Clinical indication: Injury or trauma; Fall; Blunt trauma (contusions or hematomas); Injury details: Hit forehead TECHNIQUE: Imaging protocol: Computed tomography of the head without contrast. Radiation optimization: All CT scans at this facility use at least one of these dose optimization techniques: automated exposure control; mA and/or kV adjustment per patient size (includes targeted exams where dose is matched to clinical indication); or iterative reconstruction. COMPARISON: CT head wo con* [id number] 08/30/2024 4:06 PM RADIATION DOSE METRICS: Total DLP (mGy-cm): 1122.58 FINDINGS: Brain: No acute intra-axial hemorrhage. No masses. Normal farah-white matter differentiation. No midline shift or mass effect. Moderate patchy hypodensity in hemispheric white matter bilaterally most likely due to chronic microangiopathy. Old left cerebellar hemispheric infarct. Cerebral ventricles: No ventriculomegaly. Paranasal sinuses: Visualized sinuses are unremarkable. No fluid levels. Mastoid air cells: Visualized mastoid air cells are well aerated. Bones: Unremarkable. No acute fracture. Soft tissues: Unremarkable. Other findings: No change from prior comparison. CT/CT head wo con* [id number] IMPRESSION: No acute intracranial abnormality.
--- NOTE | 2024-09-02 15:57 | W.ED.FALL ---
HPI - Fall General: Chief Complaint: Fall Stated Complaint: fall Time Seen by Provider: 09/02/24 15:44 Source: patient Mode of arrival: ambulatory Limitations: no limitations History of Present Illness: 59-year-old male states that he tripped and fell today at 10 AM and hit his head. He denies any loss of conscious states he has a mild headache denies any neck pain or any other injuries. Rates his headache a 4 out of 10 he had no vomiting. Associated symptoms-after fall: Reports headache(s); Denies abdominal pain, chest pain or neck pain Related Data Previous Rx's ?Medication ?Instructions ?Recorded atorvastatin 40 mg tablet (Lipitor) 40 mg PO DAILY #90 tabs 07/12/24 baclofen 20 mg tablet 20 mg PO TID #90 tabs 07/12/24 duloxetine 60 mg capsule,delayed 60 mg PO DAILY #90 caps 07/12/24 release gabapentin 300 mg capsule 300 mg PO TID #270 caps 07/12/24 levetiracetam 750 mg tablet 750 mg PO BID #180 tabs 07/12/24 levothyroxine 75 mcg capsule 75 mcg PO DAILY #90 caps 07/12/24 potassium chloride 10 mEq 10 meq PO DAILY #90 tabs 07/12/24 tablet,extended release(part/cryst) (Klor-Con M) topiramate 200 mg tablet 200 mg PO BID #180 tabs 07/12/24 tramadol 50 mg tablet 50 mg PO Q8H PRN pain #20 tabs 08/11/24 Fixed height hospitlal bed #1 ea 08/21/24 Allergies Allergy/AdvReac Type Severity Reaction Status Date / Time aspirin Allergy Intermediate swelling Verified 09/02/24 14:34 ibuprofen Allergy Intermediate swelling Verified 09/02/24 14:34 ketorolac (From Toradol) Allergy Intermediate swelling Verified 09/02/24 14:34 Review of Systems Const: Denies: fever(s), chills, body aches or change in appetite Eyes: Denies: blurry vision or eye discomfort ENMT: Denies: throat pain or dental pain Card: Denies: chest pain Resp: Denies: dyspnea GI: Denies: abdominal pain, nausea, vomiting or diarrhea Musc: Denies: neck pain or back pain Skin/Breast: Denies: rash Neuro: Reports: headache(s) PFSH ED PFSH: Medical History Nocturia Chronic back pain Diabetic neuropathy Hypothyroidism Epilepsy Hyperlipidemia Type 2 diabetes mellitus Cataract Surgical History History of lobectomy of lung History of bilateral knee replacement S/P placement of nerve stimulator Family History Mother Diabetes Sister Cancer Diabetes Social History Smoking and tobacco/nicotine status: former use of tobacco/nicotine Alcohol intake: never Substance/Drug Use: never Household members: spouse Housing: Other Marital status: Number of children: 0 service: No Current occupational status: disabled Pets and animals: Yes Physical Exam Const: COMMON NORMALS: no acute distress, patient oriented x3 and healthy appearing HENMT: COMMON NORMALS: normocephalic HEAD & SCALP: normocephalic OTHER: Abrasion noted to forehead Eye: COMMON NORMALS: Equal, round and reactive pupils present and EOMs intact bilaterally PUPIL: Yes Equal, round and reactive pupils present Neck/C-Spine: COMMON NORMALS: full ROM and supple Chest: COMMONS NORMALS: normal inspection of the chest Resp: COMMON NORMALS: normal respiratory effort, No retractions, No use of accessory muscles and clear to auscultation bilaterally AUSCULTATION: clear to auscultation bilaterally Cardio: COMMON NORMALS: regular rate, regular rhythm and No murmurs present (Cardio) RATE: regular rate RHYTHM: regular rhythm GI: COMMON NORMALS: Normal to inspection, nondistended, normoactive bowel sounds present, Soft to palpation, non-tender and no masses PALPATION: Yes Soft to palpation Extremity: COMMON NORMALS: normal to inspection and full ROM Neuro: COMMON NORMALS: patient oriented x3, moves all extremities and no focal motor deficits Psych: COMMON NORMALS: mental status grossly normal, Normal thought process present and cooperative THOUGHT PROCESS: Normal thought process present Skin: COMMON NORMALS: no rashes or lesions noted and no wounds GENERAL SKIN EXAM: no rashes or lesions noted Course Vital Signs: Vital signs: Vital Signs Temperature 98.1 F 09/02/24 14:31 Pulse Rate 53 L 09/02/24 15:59 Respiratory Rate 18 09/02/24 15:59 Blood Pressure 107/79 09/02/24 15:59 Pulse Oximetry 100 09/02/24 15:59 Oxygen Delivery Me thod Room Air 09/02/24 15:59 MDM - Fall Medical Decision Making Patient presents with closed head injury from a fall imaging here is negative he is well-appearing here he stable for discharge follow-up PCP return if worsening. Medical Records I reviewed the patient's medical records. Lab Data Radiology Impressions Head CT 09/02/24 15:15 IMPRESSION: No acute intracranial abnormality. All radiology interpretation(s) finalized by discharge Discharge Plan Discharge Patient Disposition: Home Clinical Impression: Closed head injury, Fall Condition: Stable Prescriptions: No Action baclofen 20 mg tablet 20 mg PO TID Qty: 90 2RF atorvastatin [Lipitor] 40 mg tablet 40 mg PO DAILY Qty: 90 0RF duloxetine 60 mg capsule,delayed release(DR/EC) 60 mg PO DAILY Qty: 90 0RF gabapentin 300 mg capsule 300 mg PO TID Qty: 270 0RF levetiracetam 750 mg tablet 750 mg PO BID Qty: 180 0RF levothyroxine 75 mcg capsule 75 mcg PO DAILY Qty: 90 0RF potassium chloride [Klor-Con M10] 10 mEq tablet,ER particles/crystals 10 meq PO DAILY Qty: 90 0RF topiramate 200 mg tablet 200 mg PO BID Qty: 180 0RF (DME) Fixed height hospitlal bed See Rx Instructions .Route .MEDSUPPLY Qty: 1 0RF Rx Instructions: As directed tramadol 50 mg tablet 50 mg PO Q8H PRN (Reason: pain) Qty: 20 0RF Discharge Orders: Discharge ED (Routine); Ordered 09/02/24 Ordered By: Nancie Brooke Referrals: Yara Osei NP [Primary Care Provider, Family Practice] - 4-7 days Discharge Diet: Advance as tolerated Discharge Activity: Resume usual activity Patient Instructions: Head Injury (ED) Print Language: Bruneian Coding Level of Care Code ED Employee'S Representative for Madyson Chen
[2024-09-02 15:59] VITALS: BP 107/79; PULSE 53; RESP 18; O2SAT 100
[2024-09-02 16:35] VITALS: BP 116/72; PULSE 57; O2SAT 99
== END 2024-09-02 16:57 | disposition home or self-care (01) ==
PROVIDERS: Emergency Provider Emergency Medicine
DX: S09.8XXA Other specified injuries of head, initial encounter (principal); W19.XXXA Unspecified fall, initial encounter; Z87.891 Personal history of nicotine dependence; E78.5 Hyperlipidemia, unspecified; E11.40 Type 2 diabetes mellitus with diabetic neuropathy, unspecified
CPT/HCPCS: 70450; 99284

== ENCOUNTER → 2024-09-03 10:26 | Outpatient (BNVA) | payer MEDICARE, SELFPAY | PROVIDERS: Visit Provider Nurse Practitioner Family | DX: M54.9 Dorsalgia, unspecified (principal); G89.29 Other chronic pain; M54.16 Radiculopathy, lumbar region | CPT/HCPCS: 99214 ==

== ENCOUNTER 2024-09-08 17:15 | Emergency (ER) | payer MEDICARE, SELFPAY ==
--- OUTSIDE RECORDS SUMMARY | 2024-05-04 08:10 | XMS_ITS | Continuity of Care Document ---
Author Organization [facility] Address [address] [address] Phone Care Team Providers Care Manager Etl Name Role Phone Peng Judy ALICIA Unavailable [...] Diagnoses Date Provider EST PT EM 3 [facility] [place] [facility], [address] [place] [address], CARIE Cheng, [id number], tel:[phone] [facility] Yag capsulotomy laser FU (chief complaint)Ret inal Detachment (chief complaint) Presence of pseudophakiaCombined forms of age-related cataract, right eyeOther retinal detachment Danish Kim. [address] [place] [address], CARIE Cheng, [id number], . tel:[phone] [facility] [place] [facility], [address] [place] [address], CARIE Cheng, [id number], tel:[phone] [facility] cataract evaluation (chief complaint) Combined forms of age-related cataract, right eyeDry eye syndrome of bilateral lacrimal glandsOther secondary cataract, left eyePresence of pseudophakiaOther retinal detachment Danish Kim. [address] [place] [address], CARIE Cheng, [id number], . tel:[phone] [facility] [place] [facility], [address] [place] [address], CARIE Cheng, [id number], tel:[phone] [facility] Post-op Exam Danish Kim. [address] [place] [address], CARIE Cheng, [id number], . tel:[phone] [facility] [place] [facility], [address] [place] [address], CARIE Cheng, [id number], tel:[phone] [facility] No Information Erik Osman. [address] [place] [address], CARIE Cheng, [id number], . tel:[phone] [facility] [place] [facility], [address] [place] [address], CARIE Cheng, [id number], tel:[phone] [facility] No Information Erik Osman. [address] [place] [address], CARIE Cheng, [id number], [place]. tel:[phone] [facility] [place] [facility], [address] [place] [address], CARIE Cheng, [id number], tel:[phone] [facility] decreased vision (chief complaint) Age-related nuclear cataract, bilateral Erik Osman. [address] [place] [address], CARIE Cheng, [id number], . tel:[phone] Family History Family Member Type Diagnosis Age At Onset Mother Problem (finding) cataract Payers Payer name Insurance type Covered republican ID Helio hlil(s) [facility] Dual Complete Medicare [id number] [facility] [id number] Social History Type Description Quantity Date Captured [...] an evaluation. Instructions Date Instruction Additional Infor timi Impression/Plan - Monitor. Relat ed to Combined forms of age-related cataract, right eye Impression/Plan - Monitor. Relat ed to Other retinal detachment Impression/Plan - Monitor. Relat ed to Presence of pseudophakia Return in 1 month wi th Judy Peng MD for YAG f/u OS. Related to Other secondary cataract, left eye Nov- Impression/Plan - St art AT QID and warm compresses. Related to Dry eye syndrome of bilateral lacrimal glands Oct- Impression/Plan - Monitor. Relat ed to Combined forms of age-related cataract, right eye Nov- Impression/Plan - Monitor. Relat ed to Other retinal detachment Oct- Impression/Plan - Monitor. Relat ed to Presence of pseudophakia Oct- Impression/Plan - I discussed the findings with patient. Based upon the clinical findings the patient is a good candidate for a left YAG laser capsulotomy and we will proceed with that today. R/B/A. Consent signed. Related to Other secondary cataract, left eye Impression/Plan Related to Post- op Exam ambulatory care coordinator to contact patient to schedule procedure. Related to Age-related nuclear cataract, bilateral Impression/Plan - Ok ay for phaco/IOL OS. TARGET -5.00 OS.Addendum: Unable to get records from Dr. Elliott. Records older than 7 years and they have been purged. Related to Age-related nuclear cataract, bilateral Follow up - ambulatory care coordinator to contact patient to schedule procedure. [...]
[2024-09-08 17:15] VITALS: BP 106/58; PULSE 54; RESP 18; TEMP 36.6; O2SAT 99; BMI 28.1
--- OUTSIDE RECORDS SUMMARY | 2024-09-08 17:31 | XMS_ITS | Clinical Summary ---
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
--- NOTE | 2024-09-08 17:52 | XRR_ITS ---
PROCEDURE INFORMATION: Exam: XR Left Shoulder Exam date and time: 09/08/2024 6:25 PM Age: 59 years old Clinical indication: Injury or trauma; Fall; Blunt trauma (contusions or hematomas); Shoulder; Left TECHNIQUE: Imaging protocol: Radiologic exam of the left shoulder. Views: 2 or more views. COMPARISON: CT cervical spin wo con* [id number] 08/30/2024 4:06 PM FINDINGS: Bones/joints: Normal. Soft tissues: Normal. XR/XR shoulder LT min 2V* [id number] IMPRESSION: No acute findings.
--- NOTE | 2024-09-08 17:52 | XRR_ITS ---
PROCEDURE INFORMATION: Exam: XR Thoracic Spine Exam date and time: 09/08/2024 6:25 PM Age: 59 years old Clinical indication: Injury or trauma; Fall; Blunt trauma (contusions or hematomas); Prior surgery; Surgery date: 6+ months; Surgery type: Lobectomy, nerve stimulator TECHNIQUE: Imaging protocol: Radiologic exam of the thoracic spine. Views: 3 views. COMPARISON: CT cervical spin wo con* [id number] 08/30/2024 4:06 PM FINDINGS: Bones/joints: Multilevel endplate spurring. Exaggerated thoracic kyphosis. No obvious acute fracture deformity. Soft tissues: No large obvious soft tissue abnormality. XR/XR thoracic spine 3V* [id number] IMPRESSION: No obvious acute fracture deformity.
--- NOTE | 2024-09-08 17:52 | XRR_ITS ---
PROCEDURE INFORMATION: Exam: XR Right Elbow Exam date and time: 09/08/2024 6:25 PM Age: 59 years old Clinical indication: Injury or trauma; Fall; Blunt trauma (contusions or hematomas); Elbow; Right TECHNIQUE: Imaging protocol: Radiologic exam of the right elbow. Views: 3 or more views. COMPARISON: CR ( EX, ) 08/18/2024 2:58 PM FINDINGS: Bones/joints: Normal. Soft tissues: Normal. XR/XR elbow RT min 3V* [id number] IMPRESSION: No acute findings.
--- NOTE | 2024-09-08 17:53 | W.ED.BACK ---
Documented by User: Armin Schwarz DO 09/10/24 08:40 HPI - Back Pain/Injury General: Chief Complaint: Back Pain/Injury Stated Complaint: back pain s/p fall Time Seen by Provider: 09/08/24 17:16 History of Present Illness: 59-year-old male who presents to the emergency room with complaint of back pain after a fall. Patient went to get up from his chair he slipped and fell and hit his back and his right elbow. He is complaining of right shoulder pain upper thoracic back pain and right elbow pain he denies striking head no loss conscious no neck pain or discomfort. No other injury. Patient usually walks with a cane no recent illnesses Associated symptoms: Deny abdominal pain, chills, dysuria, fever(s) or urinary urgency Related Data Previous Rx's ?Medication ?Instructions ?Recorded atorvastatin 40 mg tablet (Lipitor) 40 mg PO DAILY #90 tabs 07/12/24 baclofen 20 mg tablet 20 mg PO TID #90 tabs 07/12/24 duloxetine 60 mg capsule,delayed 60 mg PO DAILY #90 caps 07/12/24 release gabapentin 300 mg capsule 300 mg PO TID #270 caps 07/12/24 levetiracetam 750 mg tablet 750 mg PO BID #180 tabs 07/12/24 levothyroxine 75 mcg capsule 75 mcg PO DAILY #90 caps 07/12/24 potassium chloride 10 mEq 10 meq PO DAILY #90 tabs 07/12/24 tablet,extended release(part/cryst) (Klor-Con M) topiramate 200 mg tablet 200 mg PO BID #180 tabs 07/12/24 Fixed height hospitlal bed #1 ea 08/21/24 tramadol 50 mg tablet 50 mg PO Q8H PRN pain #10 tabs 09/08/24 Allergies Allergy/AdvReac Type Severity Reaction Status Date / Time aspirin Allergy Intermediate swelling Verified 09/03/24 10:38 ibuprofen Allergy Intermediate swelling Verified 09/03/24 10:38 ketorolac (From Toradol) Allergy Intermediate swelling Verified 09/03/24 10:38 Review of Systems Const: Denies: fever(s) or chills Card: Denies: chest pain Resp: Denies: dyspnea GI: Denies: abdominal pain : Denies: dysuria, urinary frequency or urinary urgency Musc: Denies: neck pain or back pain Skin/Breast: Denies: rash PFSH ED PFSH: Medical History Nocturia Chronic back pain Diabetic neuropathy Hypothyroidism Epilepsy Hyperlipidemia Type 2 diabetes mellitus Cataract Surgical History History of lobectomy of lung History of bilateral knee replacement S/P placement of nerve stimulator Family History Mother Diabetes Sister Cancer Diabetes Social History Smoking and tobacco/nicotine status: former use of tobacco/nicotine Alcohol intake: never Substance/Drug Use: never Household members: spouse Housing: Other Marital status: Number of children: 0 service: No Current occupational status: disabled Pets and animals: Yes Physical Exam Const: COMMON NORMALS: no acute distress GENERAL APPEARANCE: cooperative ORIENTATION/CONSCIOUSNESS: Yes awake, Yes oriented to person, Yes oriented to place and Yes oriented to time HENMT: COMMON NORMALS: normocephalic, atraumatic and hearing grossly normal bilaterally HEAD & SCALP: normocephalic and atraumatic Resp: COMMON NORMALS: normal respiratory effort, No retractions, No use of accessory muscles and clear to auscultation bilaterally AUSCULTATION: clear to auscultation bilaterally Cardio: COMMON NORMALS: regular rate, regular rhythm and No murmurs present (Cardio) RATE: regular rate RHYTHM: regular rhythm GI: COMMON NORMALS: Soft to palpation and No hepatosplenomegaly present AUSCULTATION: Yes normoactive bowel sounds PALPATION: Yes Soft to palpation, No Tenderness to palpation present (GI), No Guarding due to palpation present (GI) and Yes No hepatosplenomegaly present Extremity: COMMON NORMALS: normal to inspection, capillary refill normal, no clubbing, cyanosis or edema, no calf tenderness and no pedal edema Neuro: SENSORIUM/ORIENTATION: Yes oriented to person, Yes oriented to place and Yes oriented to time Skin: COMMON NORMALS: no rashes or lesions noted GENERAL SKIN EXAM: no rashes or lesions noted Course Vital Signs: Vital signs: Vital Signs Temperature 97.9 F 09/08/24 17:15 Pulse Rate 48 L 09/08/24 21:49 Respiratory Rate 16 09/08/24 21:49 Blood Pressure 105/66 09/08/24 21:49 Pulse Oximetry 100 09/08/24 21:49 Oxygen Delivery Me thod Room Air 09/08/24 19:21 MDM - Back Pain/Injury Medical Decision Making Care signed out to Dr. Hancock at change of shift. See final notes for diagnosis and disposition. 59-year-old male patient presenting with back pain elbow pain and shoulder pain following a fall at home. X-rays of extremities are negative. X-ray of the thoracic spine shows significant kyphosis, with old compression fractures of the mid thoracic spine. Acute injury is not seen. He is given oral Percocet here. He will be discharged home on tramadol. Labs Radiology Impressions Elbow X-Ray 09/08/24 17:52 IMPRESSION: No acute findings. Shoulder X-Ray 09/08/24 17:52 IMPRESSION: No acute findings. Thoracic Spine X-Ray 09/08/24 17:52 IMPRESSION: No obvious acute fracture deformity. Discharge Plan Discharge Patient Disposition: Home Clinical Impression: Contusion of left shoulder, Contusion of thoracic spine Condition: Stable Prescriptions: Continued tramadol 50 mg tablet 50 mg PO Q8H PRN (Reason: pain) Qty: 10 0RF No Action baclofen 20 mg tablet 20 mg PO TID Qty: 90 2RF atorvastatin [Lipitor] 40 mg tablet 40 mg PO DAILY Qty: 90 0RF duloxetine 60 mg capsule,delayed release(DR/EC) 60 mg PO DAILY Qty: 90 0RF gabapentin 300 mg capsule 300 mg PO TID Qty: 270 0RF levetiracetam 750 mg tablet 750 mg PO BID Qty: 180 0RF levothyroxine 75 mcg capsule 75 mcg PO DAILY Qty: 90 0RF potassium chloride [Klor-Con M10] 10 mEq tablet,ER particles/crystals 10 meq PO DAILY Qty: 90 0RF topiramate 200 mg tablet 200 mg PO BID Qty: 180 0RF (DME) Fixed height hospitlal bed See Rx Instructions .Route .MEDSUPPLY Qty: 1 0RF Rx Instructions: As directed Discharge Orders: Discharge ED (Routine); Ordered 09/08/24 Ordered By: Alex Hancock Referrals: Sea,Yara, TRAINING ADMINISTRATOR [Primary Care Provider, Family Practice] Patient Instructions: Contusion in Adults (ED), Opioid Safety, Pain Management, Patient Portal & Avani Instructions Activity Restrictions/Additional Instructions: Ice for pain and swelling. You may take pain medication as needed. Call your doctor Tuesday for an appointment for follow-up. Return for problems. Print Language: Portuguese Coding Level of Care Code ED Paediatrician for Chg Fwd Documented by User: Alex Hancock DO 09/09/24 00:57 HPI - Back Pain/Injury General: Chief Complaint: Back Pain/Injury Stated Complaint: back pain s/p fall Time Seen by Provider: 09/08/24 17:16 Related Data Previous Rx's ?Medication ?Instructions ?Recorded atorvastatin 40 mg tablet (Lipitor) 40 mg PO DAILY #90 tabs 07/12/24 baclofen 20 mg tablet 20 mg PO TID #90 tabs 07/12/24 duloxetine 60 mg capsule,delayed 60 mg PO DAILY #90 caps 07/12/24 release gabapentin 300 mg capsule 300 mg PO TID #270 caps 07/12/24 levetiracetam 750 mg tablet 750 mg PO BID #180 tabs 07/12/24 levothyroxine 75 mcg capsule 75 mcg PO DAILY #90 caps 07/12/24 potassium chloride 10 mEq 10 meq PO DAILY #90 tabs 07/12/24 tablet,extended release(part/cryst) (Klor-Con M) topiramate 200 mg tablet 200 mg PO BID #180 tabs 07/12/24 Fixed height hospitlal bed #1 ea 08/21/24 tramadol 50 mg tablet 50 mg PO Q8H PRN pain #10 tabs 09/08/24 Allergies Allergy/AdvReac Type Severity Reaction Status Date / Time aspirin Allergy Intermediate swelling Verified 09/03/24 10:38 ibuprofen Allergy Intermediate swelling Verified 09/03/24 10:38 ketorolac (From Toradol) Allergy Intermediate swelling Verified 09/03/24 10:38 [facility] ED PFSH: Medical History Nocturia Chronic back pain Diabetic neuropathy Hypothyroidism Epilepsy Hyperlipidemia Type 2 diabetes mellitus Cataract Surgical History History of lobectomy of lung History of bilateral knee replacement S/P placement of nerve stimulator Family History Mother Diabetes Sister Cancer Diabetes Social History Smoking and tobacco/nicotine status: former use of tobacco/nicotine Alcohol intake: never Substance/Drug Use: never Household members: spouse Housing: Other Marital status: Number of children: 0 service: No Current occupational status: disabled Pets and animals: Yes Course Vital Signs: Vital signs: Vital Signs Temperature 97.9 F 09/08/24 17:15 Pulse Rate 48 L 09/08/24 21:49 Respiratory Rate 16 09/08/24 21:49 Blood Pressure 105/66 09/08/24 21:49 Pulse Oximetry 100 09/08/24 21:49 Oxygen Delivery Me thod Room Air 09/08/24 19:21 MDM - Back Pain/Injury Medical Decision Making 59-year-old male patient presenting with back pain elbow pain and shoulder pain following a fall at home. X-rays of extremities are negative. X-ray of the thoracic spine shows significant kyphosis, with old compression fractures of the mid thoracic spine. Acute injury is not seen. He is given oral Percocet here. He will be discharged home on tramadol. Labs Radiology Impressions Elbow X-Ray 09/08/24 17:52 IMPRESSION: No acute findings. Shoulder X-Ray 09/08/24 17:52 IMPRESSION: No acute findings. Thoracic Spine X-Ray 09/08/24 17:52 IMPRESSION: No obvious acute fracture deformity. All radiology interpretation(s) finalized by discharge Discharge Plan Discharge Patient Disposition: Home Clinical Impression: Contusion of left shoulder, Contusion of thoracic spine Condition: Stable Prescriptions: Continued tramadol 50 mg tablet 50 mg PO Q8H PRN (Reason: pain) Qty: 10 0RF No Action baclofen 20 mg tablet 20 mg PO TID Qty: 90 2RF atorvastatin [Lipitor] 40 mg tablet 40 mg PO DAILY Qty: 90 0RF duloxetine 60 mg capsule,delayed release(DR/EC) 60 mg PO DAILY Qty: 90 0RF gabapentin 300 mg capsule 300 mg PO TID Qty: 270 0RF levetiracetam 750 mg tablet 750 mg PO BID Qty: 180 0RF levothyroxine 75 mcg capsule 75 mcg PO DAILY Qty: 90 0RF potassium chloride [Klor-Con M10] 10 mEq tablet,ER particles/crystals 10 meq PO DAILY Qty: 90 0RF topiramate 200 mg tablet 200 mg PO BID Qty: 180 0RF (DME) Fixed height hospitlal bed See Rx Instructions .Route .MEDSUPPLY Qty: 1 0RF Rx Instructions: As directed Discharge Orders: Discharge ED (Routine); Ordered 09/08/24 Ordered By: Alex Hancock Referrals: Yara Osei NP [Primary Care Provider, Family Practice] Patient Instructions: Contusion in Adults (ED), Opioid Safety, Pain Management, Patient Portal & Avani Instructions Activity Restrictions/Additional Instructions: Ice for pain and swelling. You may take pain medication as needed. Call your doctor Tuesday for an appointment for follow-up. Return for problems. Print Language: Portuguese Coding Level of Care Code ED Paediatrician for Madyson Chen
[2024-09-08 19:21] VITALS: BP 110/71; PULSE 52; RESP 16; O2SAT 100
[2024-09-08] MEDS: oxyCODONE-APAP 5-325 mg Tablet 2 TAB PO (20:08)
[2024-09-08 21:49] VITALS: BP 105/66; PULSE 48; RESP 16; O2SAT 100
== END 2024-09-08 21:35 | disposition home or self-care (01) ==
PROVIDERS: Emergency Provider Emergency Medicine
DX: S40.012A Contusion of left shoulder, initial encounter (principal); S24.109A Unspecified injury at unspecified level of thoracic spinal cord, initial encounter; Z87.891 Personal history of nicotine dependence; E78.5 Hyperlipidemia, unspecified; E11.40 Type 2 diabetes mellitus with diabetic neuropathy, unspecified; W01.0XXA Fall on same level from slipping, tripping and stumbling without subsequent striking against object, initial encounter
CPT/HCPCS: 72072; 73030; 73080; 99285; J9999

== ENCOUNTER 2024-09-10 08:37 | Oncology outpatient (recurring) (ONCR) | payer MEDICARE, SELFPAY | END 2024-09-27 23:59 | disposition home or self-care (01) | PROVIDERS: Visit Provider Internal Medicine Medical Oncology | DX: M79.18 Myalgia, other site (principal); M54.16 Radiculopathy, lumbar region; G89.29 Other chronic pain; Z85.118 Personal history of other malignant neoplasm of bronchus and lung | CPT/HCPCS: 20553; 99205; 99214; J1010; J3490 ==

== ENCOUNTER 2024-09-11 05:44 | Emergency (ER) | payer MEDICARE, SELFPAY ==
--- OUTSIDE RECORDS SUMMARY | 2024-05-04 08:10 | XMS_ITS | Continuity of Care Document ---
Author Organization [facility] Eye Surgery Address [address] [address] Phone Care Team Providers Care Lamp Inspector Name Role Phone Peng Judy ALICIA Unavailable [...] Diagnoses Date Provider EST PT EM 3 [facility] [place] [facility], [address] [place] [address], CARIE Cheng, [id number], tel:[phone] [facility] Yag capsulotomy laser FU (chief complaint)Ret inal Detachment (chief complaint) Presence of pseudophakiaCombined forms of age-related cataract, right eyeOther retinal detachment Danish Kim. [address] [place] [address], CARIE Cheng, [id number], . tel:[phone] [facility] [place] [facility], [address] [place] [address], CARIE Cheng, [id number], tel:[phone] [facility] cataract evaluation (chief complaint) Combined forms of age-related cataract, right eyeDry eye syndrome of bilateral lacrimal glandsOther secondary cataract, left eyePresence of pseudophakiaOther retinal detachment Danish Kim. [address] [place] [address], CARIE Cheng, [id number], . tel:[phone] [facility] [place] [facility], [address] [place] [address], CARIE Cheng, [id number], tel:[phone] [facility] Post-op Exam Danish Kim. [address] [place] [address], CARIE Cheng, [id number], . tel:[phone] [facility] [place] [facility], [address] [place] [address], CARIE Cheng, [id number], tel:[phone] [facility] No Information Erik Osman. [address] [place] [address], CARIE Cheng, [id number], . tel:[phone] [facility] [place] [facility], [address] [place] [address], CARIE Cheng, [id number], tel:[phone] [facility] No Information Erik Osman. [address] [place] [address], CARIE Cheng, [id number], [place]. tel:[phone] [facility] [place] [facility], [address] [place] [address], CARIE Cheng, [id number], tel:[phone] [facility] decreased vision (chief complaint) Age-related nuclear cataract, bilateral Erik Osman. [address] [place] [address], CARIE Cheng, [id number], . tel:[phone] Family History Family Member Type Diagnosis Age At Onset Mother Problem (finding) cataract Payers Payer name Insurance type Covered constitution party ID Helio hill(s) [facility] Dual Complete Medicare [id number] [facility] [id number] Social History Type Description Quantity Date Captured [...] glands Impression/Plan Related to Post- op Exam health service coordinator to contact patient to schedule procedure. Related to Age-related nuclear cataract, bilateral Follow up - health service coordinator to contact patient to schedule procedure. Related to Age-related nuclear cataract, bilateral Impression/Plan - Ok ay for phaco/IOL OS. TARGET -5.00 OS.Addendum: Unable to get records from Dr. Elloitt. Records older than 7 years and they [...]
[2024-09-11 05:54] VITALS: BP 117/72; PULSE 71; RESP 18; TEMP 36.4; O2SAT 98; BMI 23.6
--- OUTSIDE RECORDS SUMMARY | 2024-09-11 05:54 | XMS_ITS | Clinical Summary ---
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
--- NOTE | 2024-09-11 05:57 | W.ED.GENADLT ---
HPI - General Adult General: Chief complaint: Head Injury Stated complaint: Head Injury Time Seen by Provider: 09/11/24 05:56 History of Present Illness: 59-year-old male who is laying in bed he sat up while in bed as he did he hit his head on the headboard. He is complaining of pain on the top of his head. He does have a red perico on his forehead but he states that is not where he hit his head on the headboard. He hit it on the top of the head as he sat up there is no loss of consciousness he has not been vomiting. No other injury. Associated symptoms: Deny chest pain, dyspnea or rash Related Data Previous Rx's ?Medication ?Instructions ?Recorded atorvastatin 40 mg tablet (Lipitor) 40 mg PO DAILY #90 tabs 07/12/24 baclofen 20 mg tablet 20 mg PO TID #90 tabs 07/12/24 duloxetine 60 mg capsule,delayed 60 mg PO DAILY #90 caps 07/12/24 release gabapentin 300 mg capsule 300 mg PO TID #270 caps 07/12/24 levetiracetam 750 mg tablet 750 mg PO BID #180 tabs 07/12/24 levothyroxine 75 mcg capsule 75 mcg PO DAILY #90 caps 07/12/24 potassium chloride 10 mEq 10 meq PO DAILY #90 tabs 07/12/24 tablet,extended release(part/cryst) (Klor-Con M) topiramate 200 mg tablet 200 mg PO BID #180 tabs 07/12/24 Fixed height hospitlal bed #1 ea 08/21/24 tramadol 50 mg tablet 50 mg PO Q8H PRN pain #10 tabs 09/08/24 Allergies Allergy/AdvReac Type Severity Reaction Status Date / Time aspirin Allergy Intermediate swelling Verified 09/10/24 12:56 ibuprofen Allergy Intermediate swelling Verified 09/10/24 12:56 ketorolac (From Toradol) Allergy Intermediate swelling Verified 09/10/24 12:56 Review of Systems Const: Denies: fever(s) or chills Card: Denies: chest pain Resp: Denies: dyspnea GI: Denies: abdominal pain : Denies: dysuria, urinary frequency or urinary urgency Musc: Denies: neck pain or back pain Skin/Breast: Denies: rash PFSH ED PFSH: Medical History Nocturia Chronic back pain Diabetic neuropathy Hypothyroidism Epilepsy Hyperlipidemia Type 2 diabetes mellitus Cataract Surgical History History of lobectomy of lung History of bilateral knee replacement S/P placement of nerve stimulator Family History Mother Diabetes Sister Cancer Diabetes Social History Smoking and tobacco/nicotine status: former use of tobacco/nicotine Alcohol intake: never Substance/Drug Use: never Household members: spouse Housing: Other Marital status: Number of children: 0 service: No Current occupational status: disabled Pets and animals: Yes Physical Exam Const: COMMON NORMALS: no acute distress GENERAL APPEARANCE: cooperative and comfortable ORIENTATION/CONSCIOUSNESS: Yes awake, Yes oriented to person, Yes oriented to place and Yes oriented to time HENMT: COMMON NORMALS: normocephalic, atraumatic and hearing grossly normal bilaterally HEAD & SCALP: normocephalic and atraumatic Eye: OTHER: Extraocular movements fully intact Kolm IGGY Resp: COMMON NORMALS: normal respiratory effort, No retractions, No use of accessory muscles and clear to auscultation bilaterally AUSCULTATION: clear to auscultation bilaterally Cardio: COMMON NORMALS: regular rate, regular rhythm and No murmurs present (Cardio) RATE: regular rate RHYTHM: regular rhythm GI: COMMON NORMALS: Soft to palpation and No hepatosplenomegaly present AUSCULTATION: Yes normoactive bowel sounds PALPATION: Yes Soft to palpation, No Tenderness to palpation present (GI), No Guarding due to palpation present (GI) and Yes No hepatosplenomegaly present Extremity: COMMON NORMALS: normal to inspection, capillary refill normal, no clubbing, cyanosis or edema, no calf tenderness and no pedal edema Neuro: SENSORIUM/ORIENTATION: Yes oriented to person, Yes oriented to place and Yes oriented to time OTHER: Neuroexam there are no lateralizing deficits. Patient has no neck pain he is awake alert oriented full range of motion all extremities strength 5/5 in all extremities good facial symmetry. Skin: COMMON NORMALS: no rashes or lesions noted GENERAL SKIN EXAM: no rashes or lesions noted Course Vital Signs: Vital signs: Vital Signs Temperature 97.5 F L 09/11/24 05:54 Pulse Rate 71 09/11/24 05:54 Respiratory Rate 18 09/11/24 05:54 Blood Pressure 117/72 09/11/24 05:54 Pulse Oximetry 98 09/11/24 05:54 Oxygen Delivery Me thod Room Air 09/11/24 05:54 MDM - General Adult Medical Decision Making No focal logic deficits noted relatively minor mechanism of injury. There is no abrasions lacerations swelling no other abnormality to the scalp. The red area on the frontal area was not where he hit according to his own report. This neck is otherwise cleared clinically at the bedside. Discharge patient home can follow-up as needed with primary care. Medical Records I reviewed the patient's medical records. Lab Data I reviewed the patient's lab results. No radiology studies performed this visit Discharge Plan Discharge Patient Disposition: Home Clinical Impression: Closed head injury Condition: Stable Prescriptions: No Action baclofen 20 mg tablet 20 mg PO TID Qty: 90 2RF atorvastatin [Lipitor] 40 mg tablet 40 mg PO DAILY Qty: 90 0RF duloxetine 60 mg capsule,delayed release(DR/EC) 60 mg PO DAILY Qty: 90 0RF gabapentin 300 mg capsule 300 mg PO TID Qty: 270 0RF levetiracetam 750 mg tablet 750 mg PO BID Qty: 180 0RF levothyroxine 75 mcg capsule 75 mcg PO DAILY Qty: 90 0RF potassium chloride [Klor-Con M10] 10 mEq tablet,ER particles/crystals 10 meq PO DAILY Qty: 90 0RF topiramate 200 mg tablet 200 mg PO BID Qty: 180 0RF (DME) Fixed height hospitlal bed See Rx Instructions .Route .MEDSUPPLY Qty: 1 0RF Rx Instructions: As directed tramadol 50 mg tablet 50 mg PO Q8H PRN (Reason: pain) Qty: 10 0RF Discharge Orders: Discharge ED (Routine); Ordered 09/11/24 Ordered By: Armin cShwarz Referrals: Yara Osei NP [Primary Care Provider, Family Practice] Discharge Diet: Usual diet Discharge Activity: Resume usual activity Patient Instructions: Opioid Safety, Pain Management, Patient Portal & Avani Instructions Activity Restrictions/Additional Instructions: Thank you for choosing [facility] for your healthcare needs today. It is very important that you follow up as instructed or that you return to the Emergency Department should you have concerns or if your condition changes or worsens in any way. You were seen in the emergency room with a complaint of having hit your head on the headboard while lying in bed. Your neurologic exam was normal and examination of the head as there is no significant injury. Follow-up with your primary care doctor as needed. Print Language: Kazakh Coding Level of Care Code ED Grooming Salon Manager for Madyson Chen
[2024-09-11 06:12] VITALS: BP 114/69; PULSE 73; O2SAT 98
== END 2024-09-11 06:10 | disposition home or self-care (01) ==
PROVIDERS: Emergency Provider Family Medicine
DX: S09.90XA Unspecified injury of head, initial encounter (principal); E03.9 Hypothyroidism, unspecified; E78.5 Hyperlipidemia, unspecified; E11.40 Type 2 diabetes mellitus with diabetic neuropathy, unspecified; G40.909 Epilepsy, unspecified, not intractable, without status epilepticus; W22.8XXA Striking against or struck by other objects, initial encounter; Z79.899 Other long term (current) drug therapy; Z88.8 Allergy status to other drugs, medicaments and biological substances; Z79.890 Hormone replacement therapy; Z87.891 Personal history of nicotine dependence
CPT/HCPCS: 99281

== ENCOUNTER 2024-09-12 10:45 | Emergency (ER) | payer MEDICARE, SELFPAY ==
[2024-09-12 10:47] VITALS: BP 109/62; PULSE 54; RESP 16; TEMP 36.7; O2SAT 100; BMI 23.6
--- NOTE | 2024-09-12 10:48 | W.ED.GENADLT ---
HPI - General Adult General: Chief complaint: Weakness Stated complaint: Heat Time Seen by Provider: 09/12/24 10:47 Source: patient and EMS Mode of arrival: EMS Limitations: no limitations History of Present Illness: 59-year-old male is very well-known to ER states that he had been outside in the heat and fell like he was getting overheated he denies any vomiting or diarrhea denies any pain. States he feels improved since he has been out of the heat Associated symptoms: Deny chest pain, dyspnea, headache(s), nausea, rash or vomiting Related Data Previous Rx's ?Medication ?Instructions ?Recorded atorvastatin 40 mg tablet (Lipitor) 40 mg PO DAILY #90 tabs 07/12/24 baclofen 20 mg tablet 20 mg PO TID #90 tabs 07/12/24 duloxetine 60 mg capsule,delayed 60 mg PO DAILY #90 caps 07/12/24 release gabapentin 300 mg capsule 300 mg PO TID #270 caps 07/12/24 levetiracetam 750 mg tablet 750 mg PO BID #180 tabs 07/12/24 levothyroxine 75 mcg capsule 75 mcg PO DAILY #90 caps 07/12/24 potassium chloride 10 mEq 10 meq PO DAILY #90 tabs 07/12/24 tablet,extended release(part/cryst) (Klor-Con M) topiramate 200 mg tablet 200 mg PO BID #180 tabs 07/12/24 Fixed height hospitlal bed #1 ea 08/21/24 tramadol 50 mg tablet 50 mg PO Q8H PRN pain #10 tabs 09/08/24 Allergies Allergy/AdvReac Type Severity Reaction Status Date / Time aspirin Allergy Intermediate swelling Verified 09/10/24 12:56 ibuprofen Allergy Intermediate swelling Verified 09/10/24 12:56 ketorolac (From Toradol) Allergy Intermediate swelling Verified 09/10/24 12:56 Review of Systems Const: Denies: fever(s), chills, body aches or change in appetite ENMT: Denies: throat pain or dental pain Card: Denies: chest pain Resp: Denies: dyspnea GI: Denies: abdominal pain, nausea, vomiting or diarrhea Musc: Denies: neck pain or back pain Skin/Breast: Denies: rash Neuro: Denies: headache(s) PFSH ED PFSH: Medical History Nocturia Chronic back pain Diabetic neuropathy Hypothyroidism Epilepsy Hyperlipidemia Type 2 diabetes mellitus Cataract Surgical History History of lobectomy of lung History of bilateral knee replacement S/P placement of nerve stimulator Family History Mother Diabetes Sister Cancer Diabetes Social History Smoking and tobacco/nicotine status: former use of tobacco/nicotine Alcohol intake: never Substance/Drug Use: never Household members: spouse Housing: Other Marital status: Number of children: 0 service: No Current occupational status: disabled Pets and animals: Yes Physical Exam Const: COMMON NORMALS: no acute distress, patient oriented x3 and healthy appearing HENMT: COMMON NORMALS: normocephalic and atraumatic HEAD & SCALP: normocephalic and atraumatic Eye: COMMON NORMALS: Equal, round and reactive pupils present and EOMs intact bilaterally PUPIL: Yes Equal, round and reactive pupils present Neck/C-Spine: COMMON NORMALS: full ROM and supple Chest: COMMONS NORMALS: normal inspection of the chest and normal palpation of entire chest wall Resp: COMMON NORMALS: normal respiratory effort, No retractions, No use of accessory muscles and clear to auscultation bilaterally AUSCULTATION: clear to auscultation bilaterally Cardio: COMMON NORMALS: regular rate, regular rhythm and No murmurs present (Cardio) RATE: regular rate RHYTHM: regular rhythm GI: COMMON NORMALS: Normal to inspection, nondistended, normoactive bowel sounds present, Soft to palpation, non-tender and no masses PALPATION: Yes Soft to palpation Extremity: COMMON NORMALS: normal to inspection and full ROM Neuro: COMMON NORMALS: patient oriented x3, moves all extremities and no focal motor deficits Psych: COMMON NORMALS: mental status grossly normal, Normal thought process present and cooperative THOUGHT PROCESS: Normal thought process present Skin: COMMON NORMALS: no rashes or lesions noted and no wounds GENERAL SKIN EXAM: no rashes or lesions noted Course Vital Signs: Vital signs: Vital Signs Temperature 98.1 F 09/12/24 10:47 Pulse Rate 54 L 09/12/24 11:24 Respiratory Rate 16 09/12/24 10:47 Blood Pressure 117/68 09/12/24 11:24 Pulse Oximetry 100 09/12/24 11:24 Oxygen Delivery Me thod Room Air 09/12/24 10:47 MDM - General Adult Medical Decision Making Patient presents here after heat exposure he has been well-appearing here vitals blood works normal he stable for discharge Medical Records I reviewed the patient's medical records. Lab Data I reviewed the patient's lab results. 09/12/24 10:48 09/12/24 10:48 Laboratory Results WBC 6.16 10^3/uL (3.29-11.43) 09/12/24 10:48 RBC 3.77 10^6/uL (3.85-5.65) L 09/12/24 10:48 Hgb 11.30 g/dL (11.27-16.99) 09/12/24 10:48 Hct 35.1 % (37-53) L 09/12/24 10:48 MCV 93.1 fl (82-101) 09/12/24 10:48 MCH 30.0 pg (27-33) 09/12/24 10:48 MCHC 32.2 g/dL (30-55) 09/12/24 10:48 RDW 14.4 % (12.1-15.1) 09/12/24 10:48 Plt Count 222 10^3/cmm (157-399) 09/12/24 10:48 MPV 10.5 fL (7.4-10.4) H 09/12/24 10:48 Neut % (Auto) 67.5 % 09/12/24 10:48 Lymph % (Auto) 22.4 % 09/12/24 10:48 [place] % (Auto) 6.0 % 09/12/24 10:48 Eos % (Auto) 3.6 % 09/12/24 10:48 Baso % (Auto) 0.3 % 09/12/24 10:48 Neut # (Auto) 4.16 10^3/uL (1.8-7.7) 09/12/24 10:48 Lymph # (Auto) 1.4 10^3/uL (0.8-4.8) 09/12/24 10:48 [place] # (Auto) 0.4 10^3/uL (0.2-0.9) 09/12/24 10:48 Eos # (Auto) 0.2 10^3/uL (0.0-0.8) 09/12/24 10:48 Baso # (Auto) 0.0 10^3/uL (0.0-0.1) 09/12/24 10:48 Nucleated RBC % (auto) 0 % 09/12/24 10:48 Nucleated RBCs # 0.0 /100WBC 09/12/24 10:48 Sodium 144 mmol/L (136-145) 09/12/24 10:48 Potassium 4.2 mmol/L (3.5-5.1) 09/12/24 10:48 Chloride 109 mmol/L (98-107) H 09/12/24 10:48 Carbon Dioxide 22 mmol/L (22-29) 09/12/24 10:48 Anion Gap 17.2 (5-19) 09/12/24 10:48 BUN 14 mg/dL (6-20) 09/12/24 10:48 Creatinine 0.7 mg/dL (0.7-1.2) 09/12/24 10:48 GFR Calculation 115.8 mL/min (90-130) 09/12/24 10:48 Glucose 95 mg/dL (65-115) 09/12/24 10:48 Calculated Osmolality 298 mOsm/kg (285-295) H 09/12/24 10:48 Calcium 9.0 mg/dL (8.5-10.5) 09/12/24 10:48 No radiology studies performed this visit Discharge Plan Discharge Patient Disposition: Home Clinical Impression: Heat exposure Condition: Stable Prescriptions: No Action baclofen 20 mg tablet 20 mg PO TID Qty: 90 2RF atorvastatin [Lipitor] 40 mg tablet 40 mg PO DAILY Qty: 90 0RF duloxetine 60 mg capsule,delayed release(DR/EC) 60 mg PO DAILY Qty: 90 0RF gabapentin 300 mg capsule 300 mg PO TID Qty: 270 0RF levetiracetam 750 mg tablet 750 mg PO BID Qty: 180 0RF levothyroxine 75 mcg capsule 75 mcg PO DAILY Qty: 90 0RF potassium chloride [Klor-Con M10] 10 mEq tablet,ER particles/crystals 10 meq PO DAILY Qty: 90 0RF topiramate 200 mg tablet 200 mg PO BID Qty: 180 0RF (DME) Fixed height hospitlal bed See Rx Instructions .Route .MEDSUPPLY Qty: 1 0RF Rx Instructions: As directed tramadol 50 mg tablet 50 mg PO Q8H PRN (Reason: pain) Qty: 10 0RF Discharge Orders: Discharge ED (Routine); Ordered 09/12/24 Ordered By: Nancie Brooke Referrals: Yara Osei GENERAL DENTIST/OWNER [Primary Care Provider, Family Practice] - 4-7 days Discharge Diet: Advance as tolerated Discharge Activity: Resume usual activity Patient Instructions: Heat Exhaustion (ED) Print Language: Divehi Coding Level of Care Code ED Salad Maker for Madyson Chen
[2024-09-12 10:53] LABS: Hematocrit 35.1 % (37-53); Hemoglobin 11.30 g/dL (11.27-16.99); Mean Corpuscular HGB Conc 32.2 g/dL (30-55); Mean Corpuscular Hemoglobin 30.0 pg (27-33); Mean Corpuscular Volume 93.1 fl (82-101); Nucleated Red Blood Cells % 0 %; Platelet Count 222 10^3/cmm (157-399); Red Blood Count 3.77 10^6/uL (3.85-5.65); White Blood Count 6.16 10^3/uL (3.29-11.43)
[2024-09-12 11:09] LABS: Anion Gap 17.2 (5-19); Blood Urea Nitrogen 14 mg/dL (6-20); Calcium 9.0 mg/dL (8.5-10.5); Carbon Dioxide 22 mmol/L (22-29); Chloride 109 mmol/L (98-107); Creatinine Clr Calc Pharmacy 109.1003; Glucose 95 mg/dL (65-115); Osmolality Calculated 298 mOsm/kg (285-295); Potassium 4.2 mmol/L (3.5-5.1); Sodium 144 mmol/L (136-145)
[2024-09-12 11:24] VITALS: BP 117/68; PULSE 54; O2SAT 100
== END 2024-09-12 11:39 | disposition home or self-care (01) ==
PROVIDERS: Emergency Provider Emergency Medicine
DX: T67.9XXA Effect of heat and light, unspecified, initial encounter (principal); X30.XXXA Exposure to excessive natural heat, initial encounter; E11.40 Type 2 diabetes mellitus with diabetic neuropathy, unspecified; E78.5 Hyperlipidemia, unspecified; Z87.891 Personal history of nicotine dependence
CPT/HCPCS: 80048; 85025; 99283

== ENCOUNTER 2024-10-19 12:09 | Outpatient (CLI) | payer MEDICARE, SELFPAY ==
--- NOTE | 2024-10-19 12:30 | CTR_ITS ---
PROCEDURE INFORMATION: Exam: CT Chest With Contrast; Diagnostic Exam date and time: 10/19/2024 12:51 PM Age: 59 years old Clinical indication: Condition or disease; Other: Lung cancer; Prior surgery; Surgery date: 6+ months; Surgery type: Right lower lung lobectomy, gastric bypass, lumbar TECHNIQUE: Imaging protocol: Diagnostic computed tomography of the chest with contrast. Radiation optimization: All CT scans at this facility use at least one of these dose optimization techniques: automated exposure control; mA and/or kV adjustment per patient size (includes targeted exams where dose is matched to clinical indication); or iterative reconstruction. Contrast material: OMNI 350; Contrast volume: 100 ml; Contrast route: INTRAVENOUS (IV); COMPARISON: CT cervical spin wo con* [id number] 08/30/2024 4:06 PM RADIATION DOSE METRICS: Total DLP (mGy-cm): 761.78 FINDINGS: Lungs: Lungs are clear. Trachea and bronchi are normal. Pleural spaces: There is no pleural effusion or pneumothorax. Heart: Heart size is normal. There is no pericardial effusion. Lymph nodes: There is no mediastinal or hilar lymphadenopathy. Vasculature: The aorta is unremarkable. There is no aneurysm. Diaphragm: There is a small sliding-type hiatal hernia. Bones/joints: Bones are unremarkable. Soft tissues: The extrathoracic soft tissues are unremarkable. PROCEDURE INFORMATION: Exam: CT Abdomen And Pelvis With Contrast Exam date and time: 10/19/2024 12:51 PM Age: 59 years old Clinical indication: Condition or disease; Other: Lung cancer; Prior surgery; Surgery date: 6+ months; Surgery type: Right lower lung lobectomy, gastric bypass, lumbar TECHNIQUE: Imaging protocol: Computed tomography of the abdomen and pelvis with contrast. Radiation optimization: All CT scans at this facility use at least one of these dose optimization techniques: automated exposure control; mA and/or kV adjustment per patient size (includes targeted exams where dose is matched to clinical indication); or iterative reconstruction. Contrast material: OMNI 350; Contrast volume: 100 ml; Contrast route: INTRAVENOUS (IV); COMPARISON: CR XR thoracic spine 3V* [id number] 09/08/2024 6:25 PM RADIATION DOSE METRICS: Total DLP (mGy-cm): 761.78 FINDINGS: Lungs: Lung bases are clear. Liver: There is a 13 mm intermediate density nodule in the left lobe of the liver on series 5, image 9. Gallbladder and biliary ducts: The gallbladder is normal. There is no biliary dilation. Pancreas: The pancreas is unremarkable. Spleen: The spleen is unremarkable. Adrenal glands: The adrenal glands are unremarkable. Kidneys and ureters: The kidneys are unremarkable. No hydronephrosis or stones. No ureteral dilation. Stomach and bowel: There is a Gabriella-en-Y gastric bypass without apparent complications. The small bowel is nondilated. The colon is unremarkable. Appendix: The appendix is normal. Intraperitoneal space: There is no free air or significant intraperitoneal free fluid. Vasculature: There is mild aortic atherosclerotic disease. The portal, splenic and superior mesenteric veins are patent. Lymph nodes: There is no lymphadenopathy in the retroperitoneum, mesentery, pelvis or inguinal regions. Urinary bladder: The urinary bladder is unremarkable. Reproductive: The prostate and seminal vesicles are unremarkable. Bones/joints: There is mild degenerative disease in the lumbar spine. The pelvis and hips are unremarkable. Soft tissues: The abdominal wall is intact. CT/CT chest abdpel w/*[id number] IMPRESSION: No sign of malignancy in the thorax. IMPRESSION: 13 mm left lobe liver nodule. Metastasis not excluded. Consider nonemergent follow-up liver MRI.
[2024-10-19] MEDS: iohexol 350 mg/mL 500 mL Btl (per mL) IV (13:01)
[2024-10-19] MEDS: iohexol 350 mg/mL 500 mL Btl (per mL) PO (13:02)
== END 2024-10-19 12:10 | disposition home or self-care (01) ==
LOC: RAD 12:10
PROVIDERS: Referring Provider Internal Medicine; Visit Provider Internal Medicine Medical Oncology
DX: Z08 Encounter for follow-up examination after completed treatment for malignant neoplasm (principal); K76.89 Other specified diseases of liver; Z85.118 Personal history of other malignant neoplasm of bronchus and lung; Z90.2 Acquired absence of lung [part of]
CPT/HCPCS: 71260; 74177

== ENCOUNTER 2024-12-25 08:35 | Oncology outpatient (recurring) (ONCR) | payer MEDICAID, SELFPAY ==
[2024-12-25 08:54] LABS: Hematocrit 38.3 % (37-53); Hemoglobin 11.00 g/dL (11.27-16.99); Mean Corpuscular HGB Conc 28.7 g/dL (30-55); Mean Corpuscular Hemoglobin 27.6 pg (27-33); Mean Corpuscular Volume 96.2 fl (82-101); Nucleated Red Blood Cells % 0 %; Platelet Count 257 10^3/cmm (157-399); Red Blood Count 3.98 10^6/uL (3.85-5.65); White Blood Count 6.71 10^3/uL (3.29-11.43)
[2024-12-25 09:14] LABS: Alanine Aminotransferase 16 U/L (0-41); Albumin Level 4.0 g/dL (3.5-5.2); Alkaline Phosphatase 90 U/L (40-130); Aspartate Amino Transferase 18 U/L (0-40); Blood Urea Nitrogen 14 mg/dL (6-20); Calcium 8.6 mg/dL (8.5-10.5); Carbon Dioxide 18 mmol/L (22-29); Chloride 109 mmol/L (98-107); Globulin 2.4 g/dL (1.3-4.6); Glucose 79 mg/dL (65-115); Osmolality Calculated 289 mOsm/kg (285-295); Sodium 140 mmol/L (136-145); Total Protein 6.4 g/dL (6.6-8.7)
[2024-12-25 09:22] LABS: Anion Gap 17.1 (5-19); Potassium 4.1 mmol/L (3.5-5.1)
== END 2024-12-28 23:59 | disposition home or self-care (01) ==
LOC: ONCMED 08:36
PROVIDERS: Visit Provider Internal Medicine Medical Oncology
DX: K76.89 Other specified diseases of liver (principal); R03.0 Elevated blood-pressure reading, without diagnosis of hypertension; Z90.2 Acquired absence of lung [part of]; Z92.3 Personal history of irradiation; Z85.118 Personal history of other malignant neoplasm of bronchus and lung
CPT/HCPCS: 36415; 80053; 85025; 99214

== ENCOUNTER → 2024-12-26 14:22 | Outpatient (BNVA) | payer MEDICARE, MEDICAID, SELFPAY | DX: R73.03 Prediabetes (principal); E03.9 Hypothyroidism, unspecified; D64.9 Anemia, unspecified | CPT/HCPCS: 82728; 83036; 83550; 84443 ==

== ENCOUNTER 2025-01-11 09:22 | Outpatient (CLI) | payer MEDICAID, MEDICARE, SELFPAY ==
--- NOTE | 2025-01-11 09:30 | MRR_ITS ---
PROCEDURE INFORMATION: Exam: MR Abdomen Without and With Contrast Exam date and time: 01/11/2025 9:46 AM Age: 59 years old Clinical indication: Abnormal findings; Abnormal radiologic finding of the abdomen; Radiologic exam and body structure: CT ch/abd/pel; Prior surgery; Surgery date: 6+ months; Surgery type: Right lower lung lobectomy, gastric bypass, lumbar; Additional info: Liver lesions, patient has primary lung cancer. CT shows liver lesions. MR TECHNIQUE: Imaging protocol: Magnetic resonance imaging of the abdomen without and with contrast. COMPARISON: CT chest abdpel w/*[id number] 10/19/2024 12:51 PM FINDINGS: Liver: Liver is normal in size. Corresponding to findings on prior CT, there is a focal lesion in the left hepatic lobe segment 2 on series 701, image 9 measuring up to 1.2 cm in greatest dimension demonstrating T1 hypointensity, T2 hyperintensity and enhancement. Details of enhancement pattern are obscured by extensive artifacts (example series 800, image 96, series 800, image 166, etc . Enhancement on delayed phase imaging is still present but not blood pool isointense . No other definite focal liver pathology given artifacts. Gallbladder and biliary ducts: Gallbladder is distended but otherwise unremarkable. Pancreas: No significant pancreatic pathology. Spleen: No significant splenic pathology. Adrenal glands: No significant adrenal pathology. Kidneys: Visualized kidneys unremarkable with incomplete imaging on all sequences. Stomach and bowel: Prior gastric bypass. Intraperitoneal space: No ascites. Vasculature: No abdominal aortic aneurysm. Lymph nodes: No evidence of lymphadenopathy. Bones/joints: Mild degenerative change present in the spine. Soft tissues: Unremarkable. Other findings: Evaluation limited by respiratory degradation. MR/MR abdomen wo/w con* [id number] IMPRESSION: Evaluation limited by extensive artifacts. 1.2 cm left hepatic lobe lesion again seen, indeterminate by criteria but unchanged in size compared with the CT of 10/19/2024 given limitation of change in modality. No new or increasing pathology evident.
== END 2025-01-11 09:23 | disposition home or self-care (01) ==
PROVIDERS: Visit Provider Internal Medicine Medical Oncology
DX: C34.90 Malignant neoplasm of unspecified part of unspecified bronchus or lung (principal); K76.9 Liver disease, unspecified; R93.2 Abnormal findings on diagnostic imaging of liver and biliary tract; Z98.84 Bariatric surgery status; R93.7 Abnormal findings on diagnostic imaging of other parts of musculoskeletal system
CPT/HCPCS: 74183

== ENCOUNTER 2025-01-15 14:30 | Oncology outpatient (recurring) (ONCR) | payer MEDICARE, MEDICAID, SELFPAY | END 2025-01-27 23:59 | disposition home or self-care (01) | LOC: SLEEP 01-16 16:18 → ONCMED 01-17 08:05 | PROVIDERS: Visit Provider Internal Medicine Pulmonary Disease | DX: Z53.9 Procedure and treatment not carried out, unspecified reason (principal) | CPT/HCPCS: G0399 ==